=== PATIENT | female | born 1975 | race Caucasian/White ===

== ENCOUNTER 2017-09-24 12:24 | Emergency (ER) | payer OTHER ==
[2017-09-24 13:09] VITALS: BP 127/80; PULSE 89; TEMP 98; BMI 35.0
[2017-09-24] MEDS ORDERED: ALBUTEROL SO4 2.5/IPRATROPIUM 0.5 INH SOL 3 ML VIAL.NEB. NEB ONE (13:43)
--- NOTE | 2017-09-24 13:43 | PDOC ---
History of Present Illness - General Chief Complaint: Cold Symptoms Stated Complaint: COLD Time Seen by Provider: 09/24/17 13:31 History Source: Patient Exam Limitations: No Limitations - History of Present Illness Initial Comments: 09/24/17 13:34 Patient is a [42-year-old female with history of asthma, on Advair and Symbicort was diagnosed with influenza 3 days ago started on Tamiflu. 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 Patient wheezes as a baseline from her asthma, denies any change from her baseline. Patient just complains of intermittent fever, has been taking her Tamiflu on day 3. Denies any chest pain or shortness of breath has been doing her albuterol regularly at home. Is tolerating fluids, currently afebrile. Did have a flu shot. ] Allergies: No known allergies Medications: [Albuterol, Advair and Symbicort] Family History: Non-contributory Social History: Denies smoking, alcohol use, or IVDU Review of Systems GENERAL/CONSTITUTIONAL: Fever, generalized aches and pains No weakness. No weight change.] HEAD, EYES, EARS, NOSE AND THROAT: [No change in vision. No ear pain or discharge. No sore throat. ] CARDIOVASCULAR: [No chest pain or shortness of breath.] RESPIRATORY: [No cough, + wheezing, no hemoptysis.] GASTROINTESTINAL: [No nausea, vomiting, diarrhea or constipation. No rectal bleeding.] GENITOURINARY: [No dysuria, frequency, or change in urination.] MUSCULOSKELETAL: [No joint or muscle swelling or pain. No neck or back pain.] SKIN : [No rash or easy bruising.] NEUROLOGIC: [No headache, vertigo, loss of consciousness, or loss of sensation.] PSYCHIATRIC: [No depression or anxiety.] ENDOCRINE: [No increased thirst. No abnormal weight change.] HEMATOLOGIC/LYMPHATIC: [No anemia, easy bleeding, or history of blood clots.] ALLERGIC/IMMUNOLOGIC: [No hives or skin allergy. No latex allergy.] Physical Exam: GENERAL: [The patient is awake, alert, and fully oriented, in no acute distress. ] HEAD: [Normal with no signs of trauma.] EYES: [Pupils equal, round and reactive to light, extraocular movements intact, sclera anicteric, conjunctiva clear.] ENT: [Ears normal, nares patent, oropharynx clear without exudates. Moist mucous membranes. No uvula deviation] NECK: [Normal range of motion, supple without lymphadenopathy, JVD, or masses.] LUNGS: [Breath sounds equal, expiratory wheezes, no rhonchi no crackles] HEART: [Regular rate and rhythm, normal S1 and S2 without murmur, rub or gallop. ] ABDOMEN: [Soft, nontender, normoactive bowel sounds. No guarding, no rebound. No masses. No bruising or abrasions] MUSCULOSKELETAL: [Normal range of motion, no edema. No clubbing or cyanosis. No cords, erythema, or tenderness. No CVA Tenderness with fist.] NEUROLOGICAL: [Cranial nerves II through XII grossly intact. Normal speech, normal gait.] SKIN: [Warm, Dry, normal turgor, no rashes or lesions noted.] 09/24/17 13:45 Past History - Past Medical History Allergies/Adverse Reactions: Allergies Allergy/AdvReac Type Severity Reaction Status Date / Time No Known Allergies Allergy Verified 08/24/16 21:04 Home Medications: Ambulatory Orders Albuterol 0.083% Nebulizer Lena [Ventolin 0.083% Nebulizer Soln -] 1 neb NEB QID PRN #60 amp 06/30/16 Albuterol Sulfate Inhaler - [Ventolin HFA Inhaler -] 1 - 2 inh IH QID 06/30/16 Aclidinium [place] [Tudorza -] 1 inh IH BID 07/02/16 Budesonide/Formeterol Fumarate [SYMBICORT 160/4.5mcg -] 1 inh IH BID 07/02/16 Prednisone [Deltasone -] 60 mg PO DAILY 08/24/16 Aclidinium [place] [Tudorza -] 1 puff IH BID #1 inhaler 09/01/16 Budesonide/Formeterol Fumarate [SYMBICORT 160/4.5mcg -] 2 puff IH BID #1 inhaler 09/01/16 Fluticasone Prop 0.05% Nasal [Flonase -] 1 spray NS BID #1 spray 09/01/16 Loratadine [Claritin -] 10 mg PO DAILY tablet 09/01/16 Montelukast Na [Singulair -] 10 mg PO HS #20 tablet 09/01/16 Omeprazole 20 mg PO DAILY #14 capsule. 09/01/16 Prednisone [Deltasone -] 30 mg PO BID #30 tablet 09/01/16 Sodium Chloride Nasal [place] [[place] Nasal [place] -] 2 spray NS TID PRN #1 bottle 09/01/16 Anemia: No Asthma: Yes (INTUBATED 2009) COPD: No - Surgical History Orthopedic Surgery: Yes (scope/torn meniscus) - Family Disease History Family Disease History: Respiratory: Mother (asthma now) - Immunization History Td Vaccination: No TDAP Vaccination: No Immunization Up to Date: Yes - Suicide/Smoking/Psychosocial Hx Smoking Status: No Smoking History: Never smoked Have you smoked in the past 12 months: No Number of Cigarettes Smoked Daily: 0 Cigars Per Day: 0 Hx Alcohol Use: No Drug/Substance Use Hx: No Substance Use Type: None Hx Substance Use Treatment: No *Physical Exam - Vital Signs Last Vital Signs Temp Pulse Resp BP Pulse Ox 98 F 89 18 127/80 99 09/24/17 13:05 09/24/17 13:05 09/24/17 13:05 09/24/17 13:05 09/24/17 13:05 Medical Decision Making - Medical Decision Making 09/24/17 13:50 A/P: Patient here for evaluation of wheezing is influenza positive. Combivent treatment given while in emergency room with good result I will DC patient home to continue her Tamiflu and albuterol every 4 hours when necessary and her current medication, follow-up with employee health on Wednesday or Wednesday to be cleared to go to work. *DC/Admit/Observation/Transfer Diagnosis at time of Disposition: Influenza - Discharge Dispostion Disposition: HOME Condition at time of disposition: Stable Admit: No - Referrals Referrals: Alise Oliveira MD [Primary Care Provider] - - Patient Instructions Printed Discharge Instructions: Influenza (Alternative Therapy), Influenza Additional Instructions: Please continue to take her Tamiflu, albuterol as needed. Please follow-up with your primary care doctor, also follow-up with occupational medicine one week after diagnosis, on Wednesday for clearance to return to work - Post Discharge Activity
== END 2017-09-24 14:01 | disposition home or self-care (01) ==
LOC: JERFT 12:24
PROC: 3E0F7GC Introduction of Other Therapeutic Substance into Respiratory Tract, Via Natural or Artificial Opening (ICD-10-PCS; principal; 2017-09-24)
DX: J09.X2 Influenza due to identified novel influenza A virus with other respiratory manifestations (principal)
CPT/HCPCS: 99281-25

== ENCOUNTER 2017-11-21 19:17 | Emergency (ER) | payer OTHER ==
[2017-11-21 19:25] VITALS: BP 138/76; PULSE 83; TEMP 98.3; BMI 35.0
--- NOTE | 2017-11-21 22:06 | PDOC ---
History of Present Illness - General History Source: Patient Exam Limitations: No Limitations - History of Present Illness Initial Comments: 11/21/17 22:06 The patient is a 42 year old obese female, with a significant past medical history of asthma on Advair and symbicort , who presents to the emergency department with intermittent SOB, coughing, and wheezing. The patient reports having the flu in August and reports since never returning to her normal baseline. She reports having a recent prednisone taper and antibiotics prescription about 3 weeks ago, which offered little to no relief of her SOB/ wheezing. She notes her SOB is often worse when she lies down flat and with exertion. LMP was last week. She denies recent fevers, chills, headache or dizziness. She denies recent nausea, vomit, diarrhea or constipation. She denies recent dysuria, frequency, urgency or hematuria. Allergies: NKA Past surgical history: None reported. Social history: Nonsmoker. Denies EtOH use and recreational drug use. Primary Care Physician: <Erwin Rogers - Last Filed: 11/21/17 22:06> <Verónica Vera - Last Filed: 11/22/17 00:52> - General Chief Complaint: Asthma Stated Complaint: ASTHMA Time Seen by Provider: 11/21/17 21:56 Past History <Erwin Rogers - Last Filed: 11/21/17 22:06> - Past Medical History Anemia: No Asthma: Yes (INTUBATED 2009) COPD: No - Surgical History Orthopedic Surgery: Yes (scope/torn meniscus) - Family Disease History Family Disease History: Respiratory: Mother (asthma now) - Immunization History Td Vaccination: No TDAP Vaccination: No Immunization Up to Date: Yes - Suicide/Smoking/Psychosocial Hx Smoking Status: No Smoking History: Never smoked Have you smoked in the past 12 months: No Number of Cigarettes Smoked Daily: 0 Cigars Per Day: 0 Information on smoking cessation initiated: No Hx Alcohol Use: No Drug/Substance Use Hx: No Substance Use Type: None Hx Substance Use Treatment: No <Verónica Vera - Last Filed: 11/22/17 00:52> - Past Medical History Allergies/Adverse Reactions: Allergies Allergy/AdvReac Type Severity Reaction Status Date / Time No Known Allergies Allergy Verified 08/24/16 21:04 Home Medications: Ambulatory Orders Albuterol 0.083% Nebulizer Lena [Ventolin 0.083% Nebulizer Soln -] 1 neb NEB QID PRN #60 amp 06/30/16 Albuterol Sulfate Inhaler - [Ventolin HFA Inhaler -] 1 - 2 inh IH QID 06/30/16 Aclidinium [place] [Tudorza -] 1 inh IH BID 07/02/16 Budesonide/Formeterol Fumarate [SYMBICORT 160/4.5mcg -] 1 inh IH BID 07/02/16 predniSONE [Deltasone -] 60 mg PO DAILY 08/24/16 Aclidinium [place] [Tudorza -] 1 puff IH BID #1 inhaler 09/01/16 Budesonide/Formeterol Fumarate [SYMBICORT 160/4.5mcg -] 2 puff IH BID #1 inhaler 09/01/16 Fluticasone Prop 0.05% Nasal [Flonase -] 1 spray NS BID #1 spray 09/01/16 Loratadine [Claritin -] 10 mg PO DAILY tablet 09/01/16 Montelukast Na [Singulair -] 10 mg PO HS #20 tablet 09/01/16 Omeprazole 20 mg PO DAILY #14 capsule. 09/01/16 Sodium Chloride Nasal [place] [[place] Nasal [place] -] 2 spray NS TID PRN #1 bottle 09/01/16 predniSONE [Deltasone -] 30 mg PO BID #30 tablet 09/01/16 Albuterol Sulfate Inhaler - [Ventolin Hfa Inhaler -] 1 - 2 inh PO Q4H PRN #1 inhaler 11/22/17 Prednisone [Deltasone] 40 mg PO DAILY #8 tablet 11/22/17 Review of Systems - Review of Systems Able to Perform ROS?: Yes Comments:: 11/21/17 22:06 GENERAL/CONSTITUTIONAL: No fever or chills. No weakness. HEAD, EYES, EARS, NOSE AND THROAT: +post nasal trip. No change in vision. No ear pain or discharge. No sore throat. CARDIOVASCULAR: No chest pain +shortness of breath. RESPIRATORY: +cough, wheezing. No hemoptysis. GASTROINTESTINAL: No nausea, vomiting, diarrhea or constipation. GENITOURINARY: No dysuria, frequency, or change in urination. MUSCULOSKELETAL: No joint or muscle swelling or pain. No neck or back pain. SKIN: No rash NEUROLOGIC: No headache, vertigo, loss of consciousness, or change in strength/ sensation. ENDOCRINE: No increased thirst. No abnormal weight change. HEMATOLOGIC/LYMPHATIC: No anemia, easy bleeding, or history of blood clots. ALLERGIC/IMMUNOLOGIC: No hives or skin allergy. <Erwin Rogers - Last Filed: 11/21/17 22:06> *Physical Exam - Vital Signs Last Vital Signs Temp Pulse Resp BP Pulse Ox 98.3 F 83 20 138/76 97 11/21/17 19:23 11/21/17 19:23 11/21/17 19:23 11/21/17 19:23 11/21/17 19:23 - Physical Exam Comments: 11/21/17 22:07 GENERAL: Awake, alert, and fully oriented, in no acute distress HEAD: No signs of trauma EYES: PERRLA, EOMI, sclera anicteric, conjunctiva clear ENT: Auricles normal inspection, hearing grossly normal, nares patent, oropharynx clear without exudates. Moist mucosa NECK: Normal ROM, supple, no lymphadenopathy, JVD, or masses LUNGS: Course diffuse expiratory wheezing. No crackles HEART: Regular rate and rhythm, normal S1 and S2, no murmurs, rubs or gallops ABDOMEN: Soft, nontender, normoactive bowel sounds. No guarding, no rebound. No masses EXTREMITIES: Normal range of motion, no edema. No clubbing or cyanosis. No cords, erythema, or tenderness NEUROLOGICAL: Cranial nerves II through XII grossly intact. Normal speech, normal gait SKIN: Warm, Dry, normal turgor, no rashes or lesions noted. <Erwin Rogers - Last Filed: 11/21/17 22:06> - Vital Signs Last Vital Signs Temp Pulse Resp BP Pulse Ox 98.3 F 83 20 138/76 97 11/21/17 19:23 11/21/17 19:23 11/21/17 19:23 11/21/17 19:23 11/21/17 19:23 <Verónica Vera - Last Filed: 11/22/17 00:52> *DC/Admit/Observation/Transfer - Transfer to Acute Care Facility Transfer comment: 11/21/17 22:07 Documentation prepared by Eriwn O'Isma, acting as medical communication specialist for Verónica Vera MD/DO. <Erwin Rogers - Last Filed: 11/21/17 22:06> <Verónica Vera - Last Filed: 11/22/17 00:52> Diagnosis at time of Disposition: Asthma exacerbation Qualifiers: Asthma severity: moderate Asthma persistence: unspecified Qualified Code(s): J45.901 - Unspecified asthma with (acute) exacerbation - Discharge Dispostion Disposition: HOME Condition at time of disposition: Stable - Prescriptions Prescriptions: Albuterol Sulfate Inhaler - [Ventolin Hfa Inhaler -] 1 - 2 inh PO Q4H PRN #1 inhaler PRN Reason: Asthma Prednisone [Deltasone] 40 mg PO DAILY #8 tablet - Patient Instructions Printed Discharge Instructions: DI for Asthma -- Adult Additional Instructions: please take your asthma medications and follow up with your doctor this week return for any worsening symptoms
[2017-11-21] MEDS ORDERED: ALBUTEROL SO4 2.5/IPRATROPIUM 0.5 INH SOL 3 ML VIAL.NEB. NEB ONE ×3 (22:08→22:11)
[2017-11-21] MEDS ORDERED: ALBUTEROL SO4 0.083% IH SOL 2.5 MG/3 ML VIAL.NEB. NEB ONE ×2 (22:09→22:11)
[2017-11-21] MEDS ORDERED: DEXAMETHASONE SOD PHOSPHATE 10 MG/1 ML VIAL IM ONE (22:09)
[2017-11-21] MEDS ORDERED: DEXAMETHASONE SOD PHOSPHATE 10 MG/1 ML VIAL ONE (22:11)
[2017-11-22] MEDS ORDERED: ALBUTEROL SO4 2.5/IPRATROPIUM 0.5 INH SOL 3 ML VIAL.NEB. NEB ONE (00:17)
== END 2017-11-22 02:35 | disposition home or self-care (01) ==
LOC: JERFT 19:17
PROC: 3E0F7GC Introduction of Other Therapeutic Substance into Respiratory Tract, Via Natural or Artificial Opening (ICD-10-PCS; principal; 2017-11-21)
PROC: 3E0F7GC Introduction of Other Therapeutic Substance into Respiratory Tract, Via Natural or Artificial Opening (ICD-10-PCS; 2017-11-21)
PROC: 3E0F7GC Introduction of Other Therapeutic Substance into Respiratory Tract, Via Natural or Artificial Opening (ICD-10-PCS; 2017-11-21)
PROC: 3E0F7GC Introduction of Other Therapeutic Substance into Respiratory Tract, Via Natural or Artificial Opening (ICD-10-PCS; 2017-11-21)
PROC: 3E0F7GC Introduction of Other Therapeutic Substance into Respiratory Tract, Via Natural or Artificial Opening (ICD-10-PCS; 2017-11-21)
PROC: 3E0233Z Introduction of Anti-inflammatory into Muscle, Percutaneous Approach (ICD-10-PCS; 2017-11-21)
DX: J45.901 Unspecified asthma with (acute) exacerbation (principal)
CPT/HCPCS: 99281-25; J1100

== ENCOUNTER 2018-06-11 13:12 | Emergency (ER) | payer OTHER ==
[2018-06-11 13:18] VITALS: BP 130/68; TEMP 99; BMI 35.4
[2018-06-11] MEDS ORDERED: ALBUTEROL SO4 2.5/IPRATROPIUM 0.5 INH SOL 3 ML VIAL.NEB. NEB ONE ×2 (13:51→14:54)
--- NOTE | 2018-06-11 13:58 | PDOC ---
History of Present Illness - General Chief Complaint: Asthma Stated Complaint: SOB Time Seen by Provider: 06/11/18 13:40 History Source: Patient Exam Limitations: No Limitations - History of Present Illness Initial Comments: 06/11/18 16:26 Pt is a 42 y/o F with PMH of asthma who presents to the ED for asthma exacerbation. Pt states she was seen by her primary 3 days ago for the exacerbation and given prednisone, a shot of advair, and a z-pack. She has also been using nebulizers at home with little relief. Pt also reports taking 40mg of prednisone prior to arrival. She states that despite all of her treatment she is still wheezing and feels tight. Admits to cough. Denies fevers, chills, nausea, vomiting, chest pain, recent illness Pt was intubated in 2009 for her asthma. She has been admitted numerous times for her asthma in the past Pulm: Dr. Resendez Past History - Travel Traveled outside of the country in the last 30 days: No Close contact w/someone who was outside of country & ill: No - Past Medical History Allergies/Adverse Reactions: Allergies Allergy/AdvReac Type Severity Reaction Status Date / Time No Known Allergies Allergy Verified 06/11/18 13:19 Home Medications: Ambulatory Orders Albuterol 0.083% Nebulizer Lena [Ventolin 0.083% Nebulizer Soln -] 1 neb NEB QID PRN #60 amp 06/30/16 Albuterol Sulfate Inhaler - [Ventolin HFA Inhaler -] 1 - 2 inh IH QID 06/30/16 Fluticasone Prop 0.05% Nasal [Flonase -] 1 spray NS BID #1 spray 09/01/16 Montelukast Na [Singulair -] 10 mg PO HS #20 tablet 09/01/16 Sodium Chloride Nasal [place] [[place] Nasal [place] -] 2 spray NS TID PRN #1 bottle 09/01/16 predniSONE [Deltasone -] 30 mg PO BID #30 tablet 09/01/16 Prednisone [Deltasone] 40 mg PO DAILY #8 tablet 11/22/17 Albuterol 2.5/Ipratropium 0.5 [Duoneb -] 1 neb NEB Q4H #20 vial 03/27/18 Olopatadine HCl [Patanol] 5 ml OP DAILY #1 bottle 03/30/18 Budesonide/Formeterol Fumarate [SYMBICORT 160/4.5mcg -] 1 inh PO BID 06/11/18 Fluticasone/Salmeterol [Advair 250-50 Diskus] 1 each IH BID 06/11/18 Anemia: No Asthma: Yes (INTUBATED 2009) COPD: No - Surgical History Orthopedic Surgery: Yes (scope/torn meniscus) - Family Disease History Family Disease History: Respiratory: Mother (asthma now) - Immunization History Td Vaccination: No TDAP Vaccination: No Immunization Up to Date: Yes - Suicide/Smoking/Psychosocial Hx Smoking Status: No Smoking History: Never smoked Have you smoked in the past 12 months: No Number of Cigarettes Smoked Daily: 0 Cigars Per Day: 0 Hx Alcohol Use: No Drug/Substance Use Hx: No Substance Use Type: None Hx Substance Use Treatment: No Review of Systems - Review of Systems Able to Perform ROS?: Yes Comments:: 06/11/18 13:54 CONSTITUTIONAL: Absent: fever, chills, diaphoresis, generalized weakness, malaise, loss of appetite HEENT: Absent: rhinorrhea, nasal congestion, throat pain, throat swelling, difficulty swallowing, mouth swelling, ear pain, eye pain, visual Changes CARDIOVASCULAR: Absent: chest pain, loss of consciousness, palpitations, irregular heart rate, peripheral edema RESPIRATORY: Present: cough, wheezing, shortness of breath Absent: dyspnea with exertion, orthopnea, stridor, hemoptysis GASTROINTESTINAL: Absent: abdominal pain, abdominal distension, nausea, vomiting, diarrhea, constipation, melena, hematochezia GENITOURINARY: Absent: dysuria, frequency, urgency, hesitancy, hematuria, flank pain, genital pain MUSCULOSKELETAL: Absent: myalgia, arthralgia, joint swelling SKIN: Absent: rash, itching, pallor HEMATOLOGIC/IMMUNOLOGIC: Absent: easy bleeding, easy bruising, lymphadenopathy, frequent infections ENDOCRINE: Absent: unexplained weight gain, unexplained weight loss, heat intolerance, cold intolerance NEUROLOGIC: Absent: headache, focal weakness or paresthesias, dizziness, unsteady gait, seizure, mental status changes, bladder or bowel incontinence PSYCHIATRIC: Absent: anxiety, depression, suicidal or homicidal ideation, hallucinations. Is the patient limited Welsh proficient: No *Physical Exam - Vital Signs Last Vital Signs Temp Pulse Resp BP Pulse Ox 99 F 82 18 130/68 95 06/11/18 13:15 06/11/18 13:15 06/11/18 13:15 06/11/18 13:15 06/11/18 13:15 - Physical Exam Comments: 06/11/18 13:54 GENERAL: Well developed, well nourished. Awake and alert. No acute distress. HEENT: Normocephalic, atraumatic. PERRLA, EOMI. No conjunctival pallor. Sclera are non- icteric. Moist mucous membranes. Oropharynx is clear. NECK: Supple. Full ROM. No JVD. Carotid pulses 2+ and symmetric, without bruits. No thyromegaly. No lymphadenopathy. CARDIOVASCULAR: Regular rate and rhythm. No murmurs, rubs, or gallops. Distal pulses are 2+ and symmetric. PULMONARY: Pt with inspiratory and expiratory wheezing through all lung [place]. Pt with retractions. No evidence of respiratory distress. No rales or rhonchi. ABDOMINAL: Soft. Non-tender. Non-distended. No rebound or guarding. No organomegaly. Normoactive bowel sounds. MUSCULOSKELETAL Normal range of motion at all joints. No bony deformities or tenderness. No CVA tenderness. EXTREMITIES: No cyanosis. No clubbing. No edema. No calf tenderness. SKIN: Warm and dry. Normal capillary refill. No rashes. No jaundice. NEUROLOGICAL: Alert, awake, appropriate. Cranial nerves 2-12 intact. No deficits to light touch and temperature in face, upper extremities and lower extremities. No motor deficits in the in face, upper extremities and lower extremities. Normoreflexic in the upper and lower extremities. Normal speech. Toes are down- going bilaterally. Gait is normal without ataxia. PSYCHIATRIC: Cooperative. Good eye contact. Appropriate mood and affect. Medical Decision Making - Medical Decision Making 06/11/18 15:36 Pt is a 42 y/o F with PMH of asthma who presents to the ED for asthma exacerbation. -Pt on multiple medical treatments currently for her asthma including nebs, steroids, abx, plus long acting beta-agonists with significant wheezing -4 duonebs given in the ED. Pt reports feeling better, however still with significant wheezing on exam despite treatment -Chest x-ray is negative for PNA -Given Pt's history of intubation and multiple admissions for asthma with current unresolving symptoms, will transfer patient to the main ED. Sign out given to DAV Guerra, and charge nurse Marichuy Cho. Pt to be placed in bed 12A. *DC/Admit/Observation/Transfer Diagnosis at time of Disposition: Asthma Qualifiers: Asthma severity: moderate Asthma persistence: persistent Asthma complication type: with acute exacerbation Qualified Code(s): J45.41 - Moderate persistent asthma with (acute) exacerbation - Referrals Referrals: Alise Oliveira MD [Primary Care Provider] - - Patient Instructions - Post Discharge Activity
[2018-06-11] MEDS: ALBUTEROL SO4 2.5/IPRATROPIUM 0.5 INH SOL 3 ML VIAL.NEB. NEB SCH ×3 (14:01→14:56)
--- NOTE | 2018-06-11 15:27 | PDOC ---
*Physical Exam - Vital Signs Last Vital Signs Temp Pulse Resp BP Pulse Ox 99 F 82 18 130/68 95 06/11/18 13:15 06/11/18 13:15 06/11/18 13:15 06/11/18 13:15 06/11/18 13:15 ED Treatment Course - ADDITIONAL ORDERS Additional order review: Laboratory Results 06/11/18 14:11 Urine HCG, Qual Negative - Medications Given in the ED: ED Medications Discontinued Medications Generic Name Dose Route Start Last Admin Trade Name Freq PRN Reason Stop Dose Admin Albuterol/Ipratropium 1 amp 06/11/18 14:00 06/11/18 14:56 Duoneb - NEB 06/11/18 14:46 1 amp Q15M MULU Administration Medical Decision Making - Medical Decision Making 06/11/18 15:26 Case discussed with DAV Dickens. plan as per DAV. *DC/Admit/Observation/Transfer - Referrals Referrals: Alise Oliveira MD [Primary Care Provider] - - Patient Instructions - Post Discharge Activity
[2018-06-11] MEDS ORDERED: MAGNESIUM SULF 50% (8.12 MEQ/2 ML-1 GM VIAL) IVPB ONE (15:41)
[2018-06-11] MEDS ORDERED: methylPREDNISolone NA SUCC 125 MG/2 ML VIAL IVPB ONE (15:41)
[2018-06-11] MEDS ORDERED: methylPREDNISolone NA SUCC 125 MG/2 ML VIAL ONE (16:14)
[2018-06-11] MEDS ORDERED: MAGNESIUM 1GM/D5W - 1 GM/100 ML IVPB IVPB ONE (16:14)
--- NOTE | 2018-06-11 16:35 | PDOC ---
History of Present Illness - General Chief Complaint: Asthma Stated Complaint: SOB Time Seen by Provider: 06/11/18 13:40 History Source: Patient Exam Limitations: No Limitations - History of Present Illness Initial Comments: CHIEF COMPLAINT: 42 y/o afebrile female with PMH asthma with prior intubations c/o asthma symptoms x 1 week. HISTORY OF PRESENT ILLNESS: The patient has been on prednisone for 1 week. She states she saw her PMD 2 days ago who started her on a Z-pack. She admits her wheezing and coughing were not improving. She denies fever. She had 4 duonebs in fastrack and states she feels much better but continues to have an O2 sat of 95% on RA and wheezing. PMD is Dr. Oliveira Vital signs on arrival are notable for O2 sat of 95% on RA. REVIEW OF SYSTEMS: GENERAL/CONSTITUTIONAL: No fever/chills. No weakness. No weight change. HEAD, EYES, EARS, NOSE AND THROAT: No change in vision. No ear pain or discharge. No sore throat. CARDIOVASCULAR: +SOB. No chest pain. RESPIRATORY: + cough and wheezing. GASTROINTESTINAL: No abd pain, nausea, vomiting, diarrhea. GENITOURINARY: No dysuria, frequency, or change in urination. MUSCULOSKELETAL: No joint or muscle swelling or pain. No neck or back pain. SKIN: No rash or easy bruising. NEUROLOGIC: No headache, vertigo, loss of consciousness, or loss of sensation. PHYSICAL EXAM: GENERAL: The patient is awake, alert, and fully oriented, in no acute distress. She is well appearing and speaks in full sentences without wheezing. HEAD: Normal with no signs of trauma. ENT: Pupils equal, round and reactive to light, extraocular movements intact, sclera anicteric, conjunctiva clear. Neck supple. LUNGS: Faint expiratory wheezing in lower [place]. Normal excursion. No respiratory distress or use of accessory muscles. CV: RRR, S1/S2, no MRG. Cap refill < 2 sec. ABDOMEN: Soft, non-distended, non-tender even to deep palpation, no hepatomegaly or splenomegaly, no masses. EXTREMITIES: Normal range of motion, no edema. NEUROLOGICAL: Normal speech, normal gait. CN II-XII grossly intact. SKIN: Warm, dry, normal turgor, no rashes or lesions noted. Past History - Past Medical History Allergies/Adverse Reactions: Allergies Allergy/AdvReac Type Severity Reaction Status Date / Time No Known Allergies Allergy Verified 06/11/18 13:19 Home Medications: Ambulatory Orders Albuterol 0.083% Nebulizer Lena [Ventolin 0.083% Nebulizer Soln -] 1 neb NEB QID PRN #60 amp 06/30/16 Albuterol Sulfate Inhaler - [Ventolin HFA Inhaler -] 1 - 2 inh IH QID 06/30/16 Fluticasone Prop 0.05% Nasal [Flonase -] 1 spray NS BID #1 spray 09/01/16 Montelukast Na [Singulair -] 10 mg PO HS #20 tablet 09/01/16 Sodium Chloride Nasal [place] [[place] Nasal [place] -] 2 spray NS TID PRN #1 bottle 09/01/16 predniSONE [Deltasone -] 30 mg PO BID #30 tablet 09/01/16 Prednisone [Deltasone] 40 mg PO DAILY #8 tablet 11/22/17 Albuterol 2.5/Ipratropium 0.5 [Duoneb -] 1 [facility] NEB Q4H #20 vial 03/27/18 Olopatadine HCl [Patanol] 5 ml OP DAILY #1 bottle 03/30/18 Budesonide/Formeterol Fumarate [SYMBICORT 160/4.5mcg -] 1 inh PO BID 06/11/18 Fluticasone/Salmeterol [Advair 250-50 Diskus] 1 each IH BID 06/11/18 Anemia: No Asthma: Yes (INTUBATED 2009) COPD: No - Surgical History Orthopedic Surgery: Yes (scope/torn meniscus) - Family Disease History Family Disease History: Respiratory: Mother (asthma now) - Immunization History Td Vaccination: No TDAP Vaccination: No Immunization Up to Date: Yes - Suicide/Smoking/Psychosocial Hx Smoking Status: No Smoking History: Never smoked Have you smoked in the past 12 months: No Number of Cigarettes Smoked Daily: 0 Cigars Per Day: 0 Hx Alcohol Use: No Drug/Substance Use Hx: No Substance Use Type: None Hx Substance Use Treatment: No Review of Systems - Review of Systems Is the patient limited Bulgarian proficient: No *Physical Exam - Vital Signs Last Vital Signs Temp Pulse Resp BP Pulse Ox 99 F 82 18 130/68 97 06/11/18 13:15 06/11/18 13:15 06/11/18 13:15 06/11/18 13:15 06/11/18 15:30 ED Treatment Course - ADDITIONAL ORDERS Additional order review: Laboratory Results 06/11/18 14:11 Urine HCG, Qual Negative - Medications Given in the ED: ED Medications Discontinued Medications Generic Name Dose Route Start Last Admin Trade Name Shay PRN Reason Stop Dose Admin Albuterol/Ipratropium 1 amp 06/11/18 14:00 06/11/18 14:56 Duoneb - NEB 06/11/18 14:46 1 amp Q15M MULU Administration Medical Decision Making - Medical Decision Making A/P: 42 y/o female with asthma symptoms not improving with PO prednisone and 2 days of zpack. She received 4 duonebs in fastrack and states feels much better but continues to have 95% O2 sat on RA and minimal wheezing. Plan is as follows : 1. IV solumedrol 2. IV mag The patient states she feels much better and well enough to go home. Repeat lung exam - Very minimal expiratory wheezing at bases. No accessory muscle use. O2 sat is now 97% on RA. The patient wants to go home. Instructed her to continue taking her prednisone, z-pack and normal asthma medications as directed, follow up with her doctor on Wednesday, and return to the ER with any worsening or concerning symptoms. The patient verbalizes understanding of all instructions, has no further questions and is awaiting discharge. *DC/Admit/Observation/Transfer Diagnosis at time of Disposition: Asthma Qualifiers: Asthma severity: moderate Asthma persistence: persistent Asthma complication type: with acute exacerbation Qualified Code(s): J45.41 - Moderate persistent asthma with (acute) exacerbation - Discharge Dispostion Disposition: HOME Condition at time of disposition: Improved - Referrals Referrals: Alise Oliveira MD [Primary Care Provider] - (Call Wednesday) - Patient Instructions Printed Discharge Instructions: DI for Asthma -- Adult Additional Instructions: Discharge Instructions: -Continue taking prednisone and Z-pack as prescribed -Continue taking all of your daily asthma medications -Call Dr. Oliveira on Wednesday to schedule follow up appointment -Return to the ER immediately with any worsening or concerning symptoms - Post Discharge Activity
[2018-06-11 17:44] VITALS: PULSE 84
== END 2018-06-11 17:47 | disposition home or self-care (01) ==
LOC: JERFT 13:12 → JER 13:12
PROC: 3E0F7GC Introduction of Other Therapeutic Substance into Respiratory Tract, Via Natural or Artificial Opening (ICD-10-PCS; principal; 2018-06-11)
PROC: 3E0F7GC Introduction of Other Therapeutic Substance into Respiratory Tract, Via Natural or Artificial Opening (ICD-10-PCS; 2018-06-11)
PROC: 3E0F7GC Introduction of Other Therapeutic Substance into Respiratory Tract, Via Natural or Artificial Opening (ICD-10-PCS; 2018-06-11)
PROC: 3E0F7GC Introduction of Other Therapeutic Substance into Respiratory Tract, Via Natural or Artificial Opening (ICD-10-PCS; 2018-06-11)
PROC: 3E033GC Introduction of Other Therapeutic Substance into Peripheral Vein, Percutaneous Approach (ICD-10-PCS; 2018-06-11)
PROC: 3E0333Z Introduction of Anti-inflammatory into Peripheral Vein, Percutaneous Approach (ICD-10-PCS; 2018-06-11)
DX: J45.41 Moderate persistent asthma with (acute) exacerbation (principal)
CPT/HCPCS: 71045-TC-FY; 84703; 99282-25; J7620

== ENCOUNTER 2018-08-13 09:44 | Emergency (ER) | payer OTHER ==
[2018-08-13 09:47] VITALS: BP 168/83; PULSE 78; TEMP 98.5; BMI 35.2
[2018-08-13] MEDS ORDERED: IBUPROFEN 400 MG TABLET (FP) PO ONE ×2 (10:51→10:53)
--- NOTE | 2018-08-13 10:51 | PDOC ---
History of Present Illness - General Chief Complaint: Toothache Stated Complaint: TOOTH PAIN Time Seen by Provider: 08/13/18 10:34 History Source: Patient Exam Limitations: No Limitations - History of Present Illness Initial Comments: CHIEF COMPLAINT: 42 y/o afebrile female c/o toothache since last night. HISTORY OF PRESENT ILLNESS: Patient has pain in her bottom right back tooth. She states she's taken tylenol and advil without relief. She is supposed to see her dentist on wednesday. SHe denies fever Vital signs on arrival are within normal limits. REVIEW OF SYSTEMS: GENERAL/CONSTITUTIONAL:No fever/chills. No weakness. No weight change. HEAD, EYES, EARS, NOSE AND THROAT: +toothache. No change in vision. No ear pain or discharge. No sore throat. PHYSICAL EXAM: GENERAL: The patient is awake, alert, and fully oriented, in no acute distress. HEAD: Normal with no signs of trauma. ENT: TTP of right bottom molar with visible crack in tooth. No surrounding gingival erythema or edema. No facial swelling Past History - Past Medical History Allergies/Adverse Reactions: Allergies Allergy/AdvReac Type Severity Reaction Status Date / Time No Known Allergies Allergy Verified 08/13/18 09:48 Home Medications: Ambulatory Orders Albuterol 0.083% Nebulizer Lena [Ventolin 0.083% Nebulizer Soln -] 1 neb NEB QID PRN #60 amp 06/30/16 Albuterol Sulfate Inhaler - [Ventolin HFA Inhaler -] 1 - 2 inh IH QID 06/30/16 Fluticasone Prop 0.05% Nasal [Flonase -] 1 spray NS BID #1 spray 09/01/16 Montelukast Na [Singulair -] 10 mg PO HS #20 tablet 09/01/16 Sodium Chloride Nasal [place] [[place] Nasal [place] -] 2 spray NS TID PRN #1 bottle 09/01/16 predniSONE [Deltasone -] 30 mg PO BID #30 tablet 09/01/16 Prednisone [Deltasone] 40 mg PO DAILY #8 tablet 11/22/17 Albuterol 2.5/Ipratropium 0.5 [Duoneb -] 1 neb [facility] Q4H #20 vial 03/27/18 Olopatadine HCl [Patanol] 5 ml OP DAILY #1 bottle 03/30/18 Budesonide/Formeterol Fumarate [SYMBICORT 160/4.5mcg -] 1 inh PO BID 06/11/18 Fluticasone/Salmeterol [Advair 250-50 Diskus] 1 each IH BID 06/11/18 Amoxicillin - [Amoxicillin 500mg Capsule -] 500 mg PO TID #21 capsule 08/13/18 Ibuprofen 800 mg PO TID #15 tablet 08/13/18 Anemia: No Asthma: Yes (INTUBATED 2009) COPD: No - Surgical History Orthopedic Surgery: Yes (scope/torn meniscus) - Family Disease History Family Disease History: Respiratory: Mother (asthma now) - Immunization History Td Vaccination: No TDAP Vaccination: No Immunization Up to Date: Yes - Suicide/Smoking/Psychosocial Hx Smoking Status: No Smoking History: Never smoked Have you smoked in the past 12 months: No Number of Cigarettes Smoked Daily: 0 Cigars Per Day: 0 Hx Alcohol Use: No Drug/Substance Use Hx: No Substance Use Type: None Hx Substance Use Treatment: No *Physical Exam - Vital Signs Last Vital Signs Temp Pulse Resp BP Pulse Ox 98.5 F 78 18 168/83 99 08/13/18 09:45 08/13/18 09:45 08/13/18 09:45 08/13/18 09:45 08/13/18 09:45 Medical Decision Making - Medical Decision Making A/P: 42 y/o female with toothache. will give 800mg of ibuprofen in the ER. Provided her with urgent care dental clinic info. Sent rx for amox and ibuprofen to her pharmacy. The patient verbalizes understanding of all instructions, has no further questions and is awaiting discharge. *DC/Admit/Observation/Transfer Diagnosis at time of Disposition: Toothache - Discharge Dispostion Disposition: HOME Condition at time of disposition: Good - Referrals Referrals: Alise Oliveira MD [Primary Care Provider] - Call tomorrow - Patient Instructions Printed Discharge Instructions: DI for Dental Pain Additional Instructions: Discharge Instructions: -You need to see a dentist -There is an urgent care dental clinic open today in [place]. The phone number is [phone] -A prescription for an antibiotic and pain medication has been sent to your pharmacy - Post Discharge Activity
== END 2018-08-13 10:59 | disposition home or self-care (01) ==
LOC: JERFT 09:44
DX: K08.89 Other specified disorders of teeth and supporting structures (principal)
CPT/HCPCS: 99281-25

== ENCOUNTER 2018-10-11 11:13 | Inpatient (IN) | payer OTHER ==
[2018-10-11 11:34] VITALS: BMI 35.0
[2018-10-11] MEDS ORDERED: ALBUTEROL SO4 2.5/IPRATROPIUM 0.5 INH SOL 3 ML VIAL.NEB. NEB ONE ×3 (12:14→17:19)
[2018-10-11] MEDS ORDERED: methylPREDNISolone NA SUCC 125 MG/2 ML VIAL IVPB ONE (12:16)
--- NOTE | 2018-10-11 12:16 | PDOC ---
History of Present Illness - General Chief Complaint: Asthma Stated Complaint: SOB Time Seen by Provider: 10/11/18 12:14 History Source: Patient Exam Limitations: No Limitations - History of Present Illness Initial Comments: 10/11/18 12:15 CHIEF COMPLAINT: Dyspnea HISTORY OF PRESENT ILLNESS: This is a 43-year-old female with a history of asthma (intubated in 2009 with several hospitalizations since then; maintained on daily Tudorza, Singulair, Symbicort, and albuterol nebs prn) who was started on prednisone taper for asthma exacerbation x 1 wk ago. She is now down to 40mg daily. Symptoms are not worsening, but also have not improved after 1 week of therapy. She is only able to walk a short distance because of MARQUEZ. She has cough productive of minimal sputum and chest pain/tightness with coughing or walking. She denies fevers/chills, chest pain at rest, or any other symptoms. Smoking: None for 20 yrs PCP: Dr. Oliveira Net Web Developer: Dr. Resendez V/s on arrival are notable for RR 24. REVIEW OF SYSTEMS: GENERAL/CONSTITUTIONAL: No fever or chills. No weakness. No weight change. HEAD, EYES, EARS, NOSE AND THROAT: No change in vision. No ear pain or discharge. No sore throat. CARDIOVASCULAR: Chest tightness with walking/coughing, none at rest. RESPIRATORY: See HPI. GASTROINTESTINAL: No nausea, vomiting, diarrhea or constipation. GENITOURINARY: No dysuria, frequency, or change in urination. MUSCULOSKELETAL: No joint or muscle swelling or pain. No neck or back pain. SKIN: No rash or easy bruising. NEUROLOGIC: No headache, vertigo, loss of consciousness, or loss of sensation. PSYCHIATRIC: No depression or anxiety. ENDOCRINE: No increased thirst. No abnormal weight change. HEMATOLOGIC/LYMPHATIC: No anemia, easy bleeding, or history of blood clots. ALLERGIC/IMMUNOLOGIC: No hives or skin allergy. No latex allergy. PHYSICAL EXAM: GENERAL: The patient is awake, alert, and fully oriented, in no acute distress. HEAD: Normal with no signs of trauma. ENT: Pupils equal, round and reactive to light, extraocular movements intact, sclera anicteric, conjunctiva clear. Neck supple. LUNGS: Diffuse expiratory wheezing with poor air entry bilaterally. Mild tachypnea. Able to speak in full sentences. CV: RRR, S1/S2, no MRG. Cap refill < 2 sec. ABDOMEN: Soft, non-distended, non-tender. EXTREMITIES: Normal range of motion, no edema. NEUROLOGICAL: Normal speech, normal gait. CN II-XII grossly intact. PSYCH: Normal mood, normal affect. SKIN: Warm, dry, normal turgor, no rashes or lesions noted. Past History - Past Medical History Allergies/Adverse Reactions: Allergies Allergy/AdvReac Type Severity Reaction Status Date / Time No Known Allergies Allergy Verified 10/11/18 11:29 Home Medications: Ambulatory Orders Albuterol 0.083% Nebulizer Lena [Ventolin 0.083% Nebulizer Soln -] 1 neb NEB QID PRN #60 amp 06/30/16 Albuterol Sulfate Inhaler - [Ventolin HFA Inhaler -] 1 - 2 inh IH QID 06/30/16 Fluticasone Prop 0.05% Nasal [Flonase -] 1 spray NS BID #1 spray 09/01/16 Montelukast Na [Singulair -] 10 mg PO HS #20 tablet 09/01/16 Sodium Chloride Nasal [place] [[place] -] 2 spray NS TID PRN #1 bottle 09/01/16 predniSONE [Deltasone -] 30 mg PO BID #30 tablet 09/01/16 Prednisone [Deltasone] 40 mg PO DAILY #8 tablet 11/22/17 Albuterol 2.5/Ipratropium 0.5 [Duoneb -] 1 [facility] NEB Q4H #20 vial 03/27/18 Olopatadine HCl [Patanol] 5 ml OP DAILY #1 bottle 03/30/18 Budesonide/Formeterol Fumarate [SYMBICORT 160/4.5mcg -] 1 inh PO BID 06/11/18 Fluticasone/Salmeterol [Advair 250-50 Diskus] 1 each IH BID 06/11/18 Amoxicillin - [Amoxicillin 500mg Capsule -] 500 mg PO TID #21 capsule 08/13/18 Ibuprofen 800 mg PO TID #15 tablet 08/13/18 Anemia: No Asthma: Yes (INTUBATED 2009) COPD: No - Surgical History Orthopedic Surgery: Yes (scope/torn meniscus) - Family Disease History Family Disease History: Respiratory: Mother (asthma now) - Immunization History Td Vaccination: No TDAP Vaccination: No Immunization Up to Date: Yes - Suicide/Smoking/Psychosocial Hx Smoking Status: No Smoking History: Never smoked Have you smoked in the past 12 months: No Number of Cigarettes Smoked Daily: 0 Cigars Per Day: 0 Hx Alcohol Use: No Drug/Substance Use Hx: No Substance Use Type: None Hx Substance Use Treatment: No *Physical Exam - Vital Signs Last Vital Signs Temp Pulse Resp BP Pulse Ox 98.3 F 85 24 H 151/74 95 10/11/18 11:29 10/11/18 11:29 10/11/18 11:29 10/11/18 11:29 10/11/18 11:29 Moderate Sedation - Procedure Monitoring Vital Signs: Procedure Monitoring Vital Signs Temperature 98.3 F 10/11/18 11:29 Pulse Rate 85 10/11/18 11:29 Respiratory Rate 24 H 10/11/18 11:29 Blood Pressure 151/74 10/11/18 11:29 O2 Sat by Pulse Oximetry (%) 95 10/11/18 11:29 ED Treatment Course - LABORATORY CBC & Chemistry Diagram: 10/11/18 12:45 10/11/18 12:45 Medical Decision Making - Medical Decision Making 10/11/18 12:24 A/P: 43-year-old female with asthma exacerbation. 1. DuoNeb followed by albuterol nebs 2. Solu-Medrol 125mg IVP x 1 3. CXR 4. Anticipate admission 10/11/18 13:48 Patient remains dyspneic and wheezing. Discussed with Dr. Claros - will consult. Admission requested to Dr. Oliveira. *DC/Admit/Observation/Transfer Diagnosis at time of Disposition: Asthma exacerbation Qualifiers: Asthma severity: moderate Asthma persistence: persistent Qualified Code(s): J45.41 - Moderate persistent asthma with (acute) exacerbation - Discharge Dispostion Condition at time of disposition: Guarded Decision to Admit order: Yes - Referrals - Patient Instructions - Post Discharge Activity
[2018-10-11] MEDS ORDERED: methylPREDNISolone NA SUCC 125 MG/2 ML VIAL ONE (12:33)
[2018-10-11 12:51] LABS: BASO % 0.8 % (0-2.0); EOS % 0.5 % (0-4.5); HEMOGLOBIN 12.8 GM/dL (10.7-15.3); LYMPH % 3.1 % (8-40); MCHC 32.7 g/dl (32.0-36.0); MEAN CELL VOLUME 82.6 fl (80-96); MEAN PLT VOLUME 7.6 fl (7.5-11.1); MONO % 2.3 % (3.8-10.2); NEUT % 93.3 % (42.8-82.8); PLATELET COUNT 408 K/MM3 (134-434); RBC 4.72 M/mm3 (3.60-5.2); RDW 15.3 % (11.6-15.6); WHITE BLOOD COUNT 15.7 K/mm3 (4.0-10.0)
[2018-10-11 13:32] LABS: ALBUMIN 3.8 g/dl (3.4-5.0); ALK PHOS 78 U/L (45-117); ANION GAP 7 MMOL/L (8-16); BILIRUBIN,TOTAL 0.2 mg/dL (0.2-1); BLOOD UREA NITROGEN 15 mg/dL (7-18); CHLORIDE 106 mmol/L (98-107); CO2 26 mmol/L (21-32); CREATININE 0.8 mg/dL (0.55-1.3); GLUCOSE,RANDOM 119 mg/dL (74-106); POTASSIUM 4.1 mmol/L (3.5-5.1); SGOT/AST 10 U/L (15-37); SGPT/ALT 15 U/L (13-61); SODIUM 139 mmol/L (136-145); TOT PROT 7.5 g/dl (6.4-8.2)
[2018-10-11] MEDS: ALBUTEROL SO4 0.083% IH SOL 2.5 MG/3 ML VIAL.NEB. NEB SCH ×4 (14:00→14:45)
[2018-10-11] MEDS ORDERED: ALBUTEROL SO4 0.083% IH SOL 2.5 MG/3 ML VIAL.NEB. NEB ONE (14:15)
[2018-10-11 14:36] LABS: ANISOCYTOSIS 0; MACROCYTOSIS 0; PLATELET ESTIMATE NORMAL
--- NOTE | 2018-10-11 15:17 | PN ---
Progress Note (short form) - Note Progress Note: PULMONARY CONSULTATION DICTATED 10/11/18 IMP CHRONIC PERSISTENT ASTHMA WITH ACUTE EXACERBATION HTN PLAN IV STEROIDS INHALED BRONCHODILATORS O2 MONITOR PEAK FLOW IGE LEVEL OUTPATIENT DR GIORDANO Problem List - Problems (1) Asthma exacerbation Code(s): J45.901 - UNSPECIFIED ASTHMA WITH (ACUTE) EXACERBATION Qualifiers: Asthma severity: moderate Asthma persistence: persistent Qualified Code(s ): J45.41 - Moderate persistent asthma with (acute) exacerbation (2) HTN (hypertension) Code(s): I10 - ESSENTIAL (PRIMARY) HYPERTENSION (3) Moderate persistent chronic asthma with acute exacerbation Code(s): J45.41 - MODERATE PERSISTENT ASTHMA WITH (ACUTE) EXACERBATION
[2018-10-11] MEDS ORDERED: ALBUTEROL SO4 0.083% IH SOL 2.5 MG/3 ML VIAL.NEB. NEB PRN (15:20)
--- NOTE | 2018-10-11 15:42 | CONS ---
DATE OF CONSULTATION: 10/11/2018 REFERRING PHYSICIAN: Alise Oliveira M.D. HISTORY OF PRESENT ILLNESS: The patient is a 43-year-old white female with a past medical history of chronic persistent asthma, history of intubation in 2009, had multiple hospitalizations since, admitted to [facility] with the complaint of 1 week history of increasing shortness of breath, cough and chest congestion. Patient was started on prednisone approximately 1 week ago. She states that since that time she saw minimal improvement, but she develops dyspnea with minimal exertion. She denies any chest pain or palpitations. She states that she is unable to get and/or catch her breath. She denies any hemoptysis. She denies any fevers or chills. She denies any recent URI symptoms. She is a nonsmoker. There was no history of occupational exposure to chemicals or fumes. She denies any recent travel. PAST MEDICAL HISTORY: Again includes chronic persistent asthma. REVIEW OF SYSTEMS: Respiratory: Positive shortness of breath, positive cough, positive wheezing. Chest: No chest pain, no palpitations, no hemoptysis. Abdomen: No abdominal pain, Extremities: No lower extremity edema. MEDICATIONS: Her medications prior to admission include Tudorza, Singulair, Symbicort and albuterol. PHYSICAL EXAMINATION: General: On physical examination, the patient is a well-developed, well-nourished female awake, alert, in no acute distress. Vitals: She is afebrile. Blood pressure is 151/74, respiratory rate is 24, O2 saturation is 95% on room air. HEENT: Exam is normocephalic, atraumatic. Neck: Supple. Heart: Regular with S1, S2. Chest: Scattered bibasilar wheezes throughout. Abdomen: Soft. Bowel sounds are positive. Extremities: No cyanosis, edema. LABORATORY STUDIES: WBC is 15.7, hemoglobin 12.8, hematocrit 39, platelet count of 408,000. BUN 15, creatinine 0.8. Chest x-ray: No infiltrates, no effusions. IMPRESSION: Chronic persistent asthma with acute exacerbation. PLAN: IV steroids, inhaled bronchodilators, supplemental O2, monitor peak flow. SHIELA GIORDANO M.D. [id number]
[2018-10-11] MEDS ORDERED: ALBUTEROL SO4 2.5/IPRATROPIUM 0.5 INH SOL 3 ML VIAL.NEB. NEB SCH (16:00)
--- NOTE | 2018-10-11 18:51 | HP ---
Admitting History and Physical - Primary Care Physician PCP: Alise Oliveira - Admission Chief Complaint: Cough, SOB, wheezing History of Present Illness: Patient is a 43 y/o female with past medical history of Asthma (history of intubation 2009) that presented to ED with complaints of cough, SOB, wheezing, and chest tightness. She was previously seen by PMD and treated for asthma exacerbation and placed on prednisone but was not feeling better. Patient states she is only able to walk 1/2 block due to MARQUEZ. History Source: Patient Limitations to Obtaining History: No Limitations - Past Medical History Pulmonary: Yes: Asthma ...LMP: 08/18/16 - Smoking History Smoking history: Never smoked Have you smoked in the past 12 months: No Aproximately how many cigarettes per day: 0 - Alcohol/Substance Use Hx Alcohol Use: No - Social History Usual Living Arrangement: Yes: Alone ADL: Independent History of Recent Travel: No Home Medications - Allergies Allergies/Adverse Reactions: Allergies Allergy/AdvReac Type Severity Reaction Status Date / Time No Known Allergies Allergy Verified 10/11/18 11:29 - Home Medications Home Medications: Ambulatory Orders Albuterol 0.083% Nebulizer Lena [Ventolin 0.083% Nebulizer Soln -] 1 neb NEB QID PRN #60 amp 06/30/16 Albuterol Sulfate Inhaler - [Ventolin HFA Inhaler -] 1 - 2 inh IH QID 06/30/16 Fluticasone Prop 0.05% Nasal [Flonase -] 1 spray NS BID #1 spray 09/01/16 Montelukast Na [Singulair -] 10 mg PO HS #20 tablet 09/01/16 Sodium Chloride Nasal [place] [[place] Nasal [place] -] 2 spray NS TID PRN #1 bottle 09/01/16 predniSONE [Deltasone -] 30 mg PO BID #30 tablet 09/01/16 Prednisone [Deltasone] 40 mg PO DAILY #8 tablet 11/22/17 Albuterol 2.5/Ipratropium 0.5 [Duoneb -] 1 neb NEB Q4H #20 vial 03/27/18 Olopatadine HCl [Patanol] 5 ml OP DAILY #1 bottle 03/30/18 Budesonide/Formeterol Fumarate [SYMBICORT 160/4.5mcg -] 1 inh PO BID 06/11/18 Fluticasone/Salmeterol [Advair 250-50 Diskus] 1 each IH BID 06/11/18 Amoxicillin - [Amoxicillin 500mg Capsule -] 500 mg PO TID #21 capsule 08/13/18 Ibuprofen 800 mg PO TID #15 tablet 08/13/18 Review of Systems - Review of Systems Constitutional: reports: Lethargy Eyes: reports: No Symptoms HENT: reports: No Symptoms Neck: reports: No Symptoms Cardiovascular: reports: No Symptoms Respiratory: reports: Cough (productive with yellow phlegm), SOB Gastrointestinal: reports: No Symptoms Genitourinary: reports: No Symptoms Breasts: reports: No Symptoms Reported Musculoskeletal: reports: No Symptoms Integumentary: reports: No Symptoms Neurological: reports: No Symptoms Endocrine: reports: No Symptoms Hematology/Lymphatic: reports: No Symptoms Psychiatric: reports: No Symptoms Physical Examination Vital Signs: Vital Signs Temperature 98.3 F 10/11/18 18:23 Pulse Rate 92 H 10/11/18 18:23 Respiratory Rate 16 10/11/18 18:23 Blood Pressure 142/79 10/11/18 18:23 O2 Sat by Pulse Oximetry (%) 98 10/11/18 18:23 Constitutional: Yes: Well Nourished, Calm Eyes: Yes: Conjunctiva Clear Neck: Yes: Supple Cardiovascular: Yes: Regular Rate and Rhythm Respiratory: Yes: Wheezes (Bilaterally) Gastrointestinal: Yes: Normal Bowel Sounds, Soft Musculoskeletal: Yes: WNL Extremities: Yes: WNL Edema: No Integumentary: Yes: WNL Neurological: Yes: Alert, Oriented Psychiatric: Yes: Alert, Oriented Labs: CBC, BMP 10/11/18 12:45 10/11/18 12:45 Imaging - Results Chest X-ray: Report Reviewed (no acute pathology) Problem List - Problems (1) Asthma exacerbation Code(s): J45.901 - UNSPECIFIED ASTHMA WITH (ACUTE) EXACERBATION Qualifiers: Asthma severity: moderate Asthma persistence: persistent Qualified Code(s ): J45.41 - Moderate persistent asthma with (acute) exacerbation Assessment/Plan -admit to med-surg -pulm consult made -IV methylprednisone -cont spiriva and tudorza -albuterl and duoneb tx PRN -O2 via NC PRN, keep SpO2 >90% -monitor peak flow -regular diet -dvt ppx -OOB to chair as tolerated
[2018-10-11] MEDS: methylPREDNISolone NA SUCC 40 MG/1 ML VIAL IVPUSH SCH (20:36)
[2018-10-11] MEDS: MONTELUKAST NA 10 MG TABLET PO SCH (22:12)
[2018-10-12] MEDS: methylPREDNISolone NA SUCC 40 MG/1 ML VIAL IVPUSH SCH ×4 (03:39→21:10)
[2018-10-12 08:03] LABS: HEMATOCRIT 37.3 % (32.4-45.2); HEMOGLOBIN 12.2 GM/dL (10.7-15.3); MCH 27.3 pg (25.7-33.7); MCHC 32.7 g/dl (32.0-36.0); MEAN CELL VOLUME 83.4 fl (80-96); MEAN PLT VOLUME 8.4 fl (7.5-11.1); PLATELET COUNT 394 K/MM3 (134-434); RBC 4.48 M/mm3 (3.60-5.2); RDW 15.1 % (11.6-15.6)
[2018-10-12 08:20] LABS: ALBUMIN 3.6 g/dl (3.4-5.0); ALK PHOS 72 U/L (45-117); ANION GAP 12 MMOL/L (8-16); BILIRUBIN,TOTAL 0.3 mg/dL (0.2-1); BLOOD UREA NITROGEN 19 mg/dL (7-18); CALCIUM 9.2 mg/dL (8.5-10.1); CHLORIDE 104 mmol/L (98-107); CO2 22 mmol/L (21-32); CREATININE 0.8 mg/dL (0.55-1.3); GLUCOSE,RANDOM 136 mg/dL (74-106); POTASSIUM 4.6 mmol/L (3.5-5.1); SGOT/AST 4 U/L (15-37); SGPT/ALT 15 U/L (13-61); SODIUM 138 mmol/L (136-145); TOT PROT 6.9 g/dl (6.4-8.2)
--- NOTE | 2018-10-12 08:36 | PN ---
Progress Note, Physician History of Present Illness: 43-year-old female with a history of asthma (intubated in 2009 with several hospitalizations since then; maintained on daily Tudorza, Singulair, Symbicort, and albuterol nebs prn) who was started on prednisone taper for asthma exacerbation x 1 wk ago. She is now down to 40mg daily. Symptoms are not worsening, but also have not improved after 1 week of therapy. She is only able to walk a short distance because of MARQUEZ. She has cough productive of minimal sputum and chest pain/tightness with coughing or walking. She denies fevers/ chills, chest pain at rest, or any other symptoms. - Current Medication List Current Medications: Active Medications Albuterol Sulfate (Ventolin 0.083% Nebulizer Soln -) 1 amp NEB Q4H PRN PRN Reason: SHORT OF BREATH/WHEEZING Loratadine (Claritin -) 10 mg PO DAILY MULU Methylprednisolone Sodium Succinate (Solu-Medrol -) 60 mg IVPUSH Q6H-IV MULU Last Admin: 10/12/18 03:39 Dose: 60 mg Montelukast Sodium (Singulair -) 10 mg PO HS MULU Last Admin: 10/11/18 22:12 Dose: 10 mg Tiotropium [place] (Spiriva Respimat) 2 puff IH DAILY MULU - Objective Vital Signs: Vital Signs Temperature 97.9 F 10/12/18 06:39 Pulse Rate 74 10/12/18 06:39 Respiratory Rate 20 10/12/18 06:39 Blood Pressure 130/60 10/12/18 06:39 O2 Sat by Pulse Oximetry (%) 95 10/11/18 23:00 Cardiovascular: Yes: Regular Rate and Rhythm Respiratory: Yes: Diminished, On Nasal O2, Rhonchi, Wheezes Gastrointestinal: Yes: Normal Bowel Sounds, Soft Labs: CBC, BMP 10/12/18 06:30 10/12/18 06:30 Problem List - Problems (1) Chest pain Assessment/Plan: -CE and EKG -Echo -Cardiology consult Code(s): R07.9 - CHEST PAIN, UNSPECIFIED (2) HTN (hypertension) Assessment/Plan: -Monitor Code(s): I10 - ESSENTIAL (PRIMARY) HYPERTENSION (3) Moderate persistent chronic asthma with acute exacerbation Assessment/Plan: -IV steroids -Nebs Code(s): J45.41 - MODERATE PERSISTENT ASTHMA WITH (ACUTE) EXACERBATION
[2018-10-12] MEDS ORDERED: TIOTROPIUM BROMIDE 2.5 MCG (SPIRIVA) RESPIMAT INHALER IH SCH (10:00)
[2018-10-12] MEDS ORDERED: PT OWN MED DRAWER 7, Y5N ONE (10:01)
[2018-10-12] MEDS: LORATADINE 10 MG TABLET PO SCH (10:03)
--- NOTE | 2018-10-12 14:02 | PN ---
Progress Note (short form) - Note Progress Note: PULMONARY Breathing better today but still with nonproductive cough and wheezing. Has not received any nebulizer treatments on floor. Vital Signs Period Temp Pulse Resp BP Sys/Carlson Pulse Ox Last 24 Hr 97.9 F-98.3 F 74-92 16-22 130-148/60-87 95-98 Gen: NAD at rest Heart: RRR Lung: bilateral rhonchi, wheezes Abd: soft, nontender Ext: no edema CBC, BMP 10/12/18 06:30 10/12/18 06:30 Active Medications Albuterol Sulfate (Ventolin 0.083% Nebulizer Soln -) 1 amp NEB Q4H PRN PRN Reason: SHORT OF BREATH/WHEEZING Loratadine (Claritin -) 10 mg PO DAILY [facility] Last Admin: 10/12/18 10:03 Dose: 10 mg Methylprednisolone Sodium Succinate (Solu-Medrol -) 60 mg IVPUSH Q6H-IV MULU Last Admin: 10/12/18 08:54 Dose: 60 mg Montelukast Sodium (Singulair -) 10 mg PO HS [facility] Last Admin: 10/11/18 22:12 Dose: 10 mg Tiotropium [place] (Spiriva Respimat) 2 puff IH DAILY [facility] Last Admin: 10/12/18 10:04 Dose: 2 puff A/P Acute Asthma Exacerbation HTN - will decrease medrol to 40mg q6h - inhaled bronchodilators standing and PRN - monitor peak flow - O2 to keep SpO2 >90% - DVT prophylaxis
--- NOTE | 2018-10-12 14:25 | EKG ---
Test Reason : Blood Pressure : / mmHG Vent. Rate : 066 BPM Atrial Rate : 066 BPM P-R Int : 126 ms QRS Dur : 086 ms QT Int : 428 ms P-R-T Axes : 053 046 039 degrees QTc Int : 448 ms NORMAL SINUS RHYTHM NORMAL ECG WHEN COMPARED WITH ECG OF 27-MAR-2018 10:42, NO SIGNIFICANT CHANGE WAS FOUND Confirmed by EKATERINA BRAGA MD ([id number]) on 10/12/2018 2:25:16 PM Referred By: Henny STEWART Confirmed By:EKATERINA BRAGA MD
--- NOTE | 2018-10-12 15:02 | CON.CARD ---
Consult Consult Specialty:: Cardiology - History of Present Illness Chief Complaint: SOB. Chest pain History of Present Illness: This is a 43 year old female with a PMH of asthma now on a steroid taper. She developed chest pain. She described a mid sternal chest tightness while walking up stairs. Non radiating, no associated nausea or diaphoresis. Presently CP free. EKG normal Trop neg x1 - Past Medical History Pulmonary: Yes: Asthma ...LMP: 08/18/16 ...: No - Alcohol/Substance Use Hx Alcohol Use: No - Smoking History Smoking history: Never smoked Have you smoked in the past 12 months: No Aproximately how many cigarettes per day: 0 - Social History ADL: Independent History of Recent Travel: No Home Medications - Allergies Allergies/Adverse Reactions: Allergies Allergy/AdvReac Type Severity Reaction Status Date / Time No Known Allergies Allergy Verified 10/11/18 11:29 - Home Medications Home Medications: Ambulatory Orders Albuterol 0.083% Nebulizer Lena [Ventolin 0.083% Nebulizer Soln -] 1 [facility] QID PRN #60 amp 06/30/16 Albuterol Sulfate Inhaler - [Ventolin HFA Inhaler -] 1 - 2 inh IH QID 06/30/16 Fluticasone Prop 0.05% Nasal [Flonase -] 1 spray NS BID #1 spray 09/01/16 Montelukast Na [Singulair -] 10 mg PO HS #20 tablet 09/01/16 predniSONE [Deltasone -] 30 mg PO BID #30 tablet 09/01/16 Prednisone [Deltasone] 40 mg PO DAILY #8 tablet 11/22/17 Albuterol 2.5/Ipratropium 0.5 [Duoneb -] 1 [facility] Q4H #20 vial 03/27/18 Budesonide/Formeterol Fumarate [SYMBICORT 160/4.5mcg -] 1 inh PO BID 06/11/18 Amoxicillin - [Amoxicillin 500mg Capsule -] 500 mg PO TID #21 capsule 08/13/18 Cetirizine HCl/Pseudoephedrine [Zyrtec-D Tablet] 1 each PO DAILY 10/11/18 Vital Signs: Vital Signs Temperature 98.4 F 10/12/18 14:43 Pulse Rate 82 10/12/18 14:43 Respiratory Rate 18 10/12/18 14:43 Blood Pressure 144/64 10/12/18 14:43 O2 Sat by Pulse Oximetry (%) 96 10/12/18 09:00 Constitutional: Yes: Well Nourished HENT: Yes: WNL Neck: Yes: WNL Respiratory: Yes: Diminished (bILAT), Other Gastrointestinal: Yes: Normal Bowel Sounds JVD: No Heart Sounds: Yes: S1, S2 (No MRHG) Extremities: Yes: WNL Edema: No Neurological: Yes: Alert, Oriented - Other Data Labs, Other Data: CBC, BMP 10/12/18 06:30 10/12/18 06:30 Troponin, BNP 10/12/18 12:30 Troponin I < 0.02 Troponin, BNP 10/12/18 12:30 Troponin I < 0.02 Assessment/Plan 43 year old female with a PMH of asthma now on a steroid taper. She developed chest pain. She described a mid sternal chest tightness while walking up stairs. Non radiating, no associated nausea or diaphoresis. Presently CP free. EKG normal Trop neg x1 Chest pain Both typical and atypical features Would favor a stress test when fully over her asthma exacerbation, can be done as an out patient. No signs of CHF. Call us PRN
--- NOTE | 2018-10-12 15:30 | ECHO ---
Name: MAXIMNGUYEN NORAH ISAACS Exam:Adult Echocardiogram Study Date: 10/12/2018 02:15 PM Age: 43 yrs Reason For Study: CHEST PAIN Height: 63 in Weight: 196 lb BSA: 1.9 m2 MMode/2D Measurements & Calculations IVSd: 0.91 cm Ao root diam: 3.2 cm LVIDd: 5.3 cm LA dimension: 3.7 cm LVIDs: 2.6 cm ACS: 1.9 cm LVPWd: 0.87 cm IVSs: 1.4 cm LVPWs: 1.3 cm EDV(Teich): 136.1 ml ESV(Teich): 25.7 ml Doppler Measurements & Calculations MV E max rubén: 106.4 cm/sec Ao V2 max: 164.1 cm/sec MV A max rubén: 82.9 cm/sec Ao max P.8 mmHg MV E/A: 1.3 Ao V2 mean: 116.7 cm/sec Ao mean P.3 mmHg Ao V2 VTI: 33.3 cm TR max rubén: 204.4 cm/sec PA V2 max: 148.0 cm/sec TR max P.4 mmHg PA max P.8 mmHg PA V2 mean: 102.4 cm/sec PA mean P.9 mmHg PA V2 VTI: 35.0 cm Med Peak E' Rubén: 7.6 cm/sec Med E/e': 14.0 Lat Peak E' Rubén: 13.0 cm/sec Lat E/e': 8.2 Procedure A two-dimensional transthoracic echocardiogram with color flow and Doppler was performed. Left Ventricle There is mild concentric left ventricular hypertrophy. The left ventricular ejection fraction is norm al. Left Ventricular Filling pattern is normal for age. No regional wall motion abnormalities noted. Right Ventricle The right ventricle is normal in size and function. Atria Normal left and right atrial size and function. Mitral Valve The mitral valve is normal in structure and function. There is no mitral valve stenosis. There is tra ce mitral regurgitation. Tricuspid Valve There is mild tricuspid valve thickening. There is no tricuspid stenosis. There is mild tricuspid regurgitation. Right ventricular systolic pressure is normal. Aortic Valve The aortic valve is not well visualized. No hemodynamically significant valvular aortic stenosis. No aortic regurgitation is present. Pulmonic Valve The pulmonic valve is not well visualized. Great Vessels The aortic root is normal size. Pericardium/Pleura There is no pericardial effusion. Interpretation Summary There is mild concentric left ventricular hypertrophy. The left ventricular ejection fraction is normal. There is mild tricuspid regurgitation. Right ventricular systolic pressure is normal. No regional wall motion abnormalities noted. There is trace mitral regurgitation. Left Ventricular Filling pattern is normal for age. MD Eder Grajeda 10/12/2018 03:30 PM
[2018-10-12] MEDS: ALBUTEROL SO4 2.5/IPRATROPIUM 0.5 INH SOL 3 ML VIAL.NEB. NEB SCH ×2 (16:20→21:00)
[2018-10-12] MEDS: MONTELUKAST NA 10 MG TABLET PO SCH (21:10)
[2018-10-13] MEDS: methylPREDNISolone NA SUCC 40 MG/1 ML VIAL IVPUSH SCH ×3 (03:00→17:45)
[2018-10-13] MEDS: ALBUTEROL SO4 2.5/IPRATROPIUM 0.5 INH SOL 3 ML VIAL.NEB. NEB SCH ×4 (07:35→20:31)
[2018-10-13] MEDS: LORATADINE 10 MG TABLET PO SCH (09:49)
--- NOTE | 2018-10-13 10:14 | PN ---
Progress Note (short form) - Note Progress Note: PULMONARY Breathing continues to improve. Peak flow ordered but not done. Reports best peak flow close to 400. Vital Signs Period Temp Pulse Resp BP Sys/Carlson Pulse Ox Last 24 Hr 97.7 F-98.4 F 60-82 18-22 144-150/64-79 96 Gen: NAD at rest Heart: RRR Lung: less wheezes Abd: soft, nontender Ext: no edema CBC, BMP 10/12/18 06:30 10/12/18 06:30 Active Medications Albuterol Sulfate (Ventolin 0.083% Nebulizer Soln -) 1 amp NEB Q4H PRN PRN Reason: SHORT OF BREATH/WHEEZING Albuterol/Ipratropium (Duoneb -) 1 amp NEB RQID MULU Last Admin: 10/13/18 07:35 Dose: 1 amp Loratadine (Claritin -) 10 mg PO DAILY MULU Last Admin: 10/13/18 09:49 Dose: 10 mg Methylprednisolone Sodium Succinate (Solu-Medrol -) 40 mg IVPUSH Q6H-IV MULU Last Admin: 10/13/18 09:50 Dose: 40 mg Montelukast Sodium (Singulair -) 10 mg PO HS MULU Last Admin: 10/12/18 21:10 Dose: 10 mg A/P Acute Asthma Exacerbation HTN - will decrease medrol to 40mg q8h - if continues to improve and peak flow adequate, can likely change steroids to PO prednisone 40mg daily and taper as outpt - inhaled bronchodilators standing and PRN - monitor peak flow - O2 to keep SpO2 >90% - DVT prophylaxis
--- NOTE | 2018-10-13 13:49 | PN ---
Progress Note, Physician Chief Complaint: Asthma Exacerbation History of Present Illness: On IV medrol Seen by Pulmonary Feels much better - Current Medication List Current Medications: Active Medications Albuterol Sulfate (Ventolin 0.083% Nebulizer Soln -) 1 amp NEB Q4H PRN PRN Reason: SHORT OF BREATH/WHEEZING Albuterol Sulfate (Ventolin Hfa Inhaler -) 2 puff IH Q4H PRN PRN Reason: SHORT OF BREATH/WHEEZING Albuterol/Ipratropium (Duoneb -) 1 amp NEB RQID [facility] Last Admin: 10/13/18 11:26 Dose: 1 amp Loratadine (Claritin -) 10 mg PO DAILY [facility] Last Admin: 10/13/18 09:49 Dose: 10 mg Methylprednisolone Sodium Succinate (Solu-Medrol -) 40 mg IVPUSH Q8H-IV MULU Montelukast Sodium (Singulair -) 10 mg PO HS [facility] Last Admin: 10/12/18 21:10 Dose: 10 mg - Objective Vital Signs: Vital Signs Temperature 97.7 F 10/13/18 06:37 Pulse Rate 60 10/13/18 06:37 Respiratory Rate 20 10/13/18 06:37 Blood Pressure 150/79 10/13/18 06:37 O2 Sat by Pulse Oximetry (%) 96 10/12/18 21:00 Constitutional: Yes: Well Nourished, No Distress, Calm Cardiovascular: Yes: Regular Rate and Rhythm Respiratory: Yes: Regular Gastrointestinal: Yes: Normal Bowel Sounds, Soft, Abdomen, Obese Musculoskeletal: Yes: WNL Extremities: Yes: WNL Edema: No Peripheral Pulses WNL: Yes Neurological: Yes: Alert, Oriented Psychiatric: Yes: Alert, Oriented Labs: CBC, BMP 10/12/18 06:30 10/12/18 06:30 Problem List - Problems (1) Asthma exacerbation Assessment/Plan: -IV medrol -Bronchodilators -Pulmonary consult Code(s): J45.901 - UNSPECIFIED ASTHMA WITH (ACUTE) EXACERBATION Qualifiers: Asthma severity: moderate Asthma persistence: persistent Qualified Code(s ): J45.41 - Moderate persistent asthma with (acute) exacerbation Assessment/Plan see problem list Self ambulatory D/C home in AM o n tapering dose of prednisone
[2018-10-13] MEDS: MONTELUKAST NA 10 MG TABLET PO SCH (21:28)
[2018-10-13] MEDS: ALBUTEROL SO4 8 GM HFA INHALER IH PRN (21:42)
[2018-10-13] MEDS ORDERED: PT OWN MED DRAWER 7, Y5N ONE (22:09)
[2018-10-14] MEDS: methylPREDNISolone NA SUCC 40 MG/1 ML VIAL IVPUSH SCH ×2 (01:51→09:34)
[2018-10-14] MEDS: ALBUTEROL SO4 2.5/IPRATROPIUM 0.5 INH SOL 3 ML VIAL.NEB. NEB SCH (07:58)
[2018-10-14] MEDS: LORATADINE 10 MG TABLET PO SCH (09:34)
--- NOTE | 2018-10-14 09:39 | PN ---
Progress Note, Physician - Current Medication List Current Medications: Active Medications Albuterol Sulfate (Ventolin 0.083% Nebulizer Soln -) 1 amp NEB Q4H PRN PRN Reason: SHORT OF BREATH/WHEEZING Albuterol Sulfate (Ventolin Hfa Inhaler -) 2 puff IH Q4H PRN PRN Reason: SHORT OF BREATH/WHEEZING Last Admin: 10/13/18 21:42 Dose: 2 puff Albuterol/Ipratropium (Duoneb -) 1 amp NEB RQID [facility] Last Admin: 10/14/18 07:58 Dose: 1 amp Loratadine (Claritin -) 10 mg PO DAILY [facility] Last Admin: 10/14/18 09:34 Dose: 10 mg Methylprednisolone Sodium Succinate (Solu-Medrol -) 40 mg IVPUSH Q8H-IV [facility] Last Admin: 10/14/18 09:34 Dose: 40 mg Montelukast Sodium (Singulair -) 10 mg PO HS [facility] Last Admin: 10/13/18 21:28 Dose: 10 mg - Objective Vital Signs: Vital Signs Temperature 98 F 10/14/18 06:00 Pulse Rate 63 10/14/18 06:00 Respiratory Rate 20 10/14/18 06:00 Blood Pressure 137/76 10/14/18 06:00 O2 Sat by Pulse Oximetry (%) 96 10/13/18 21:00 Cardiovascular: Yes: Regular Rate and Rhythm Respiratory: Yes: Regular, CTA Bilaterally Gastrointestinal: Yes: Normal Bowel Sounds, Soft Labs: CBC, BMP 10/12/18 06:30 10/12/18 06:30 Problem List - Problems (1) Chest pain Assessment/Plan: -CE and EKG -Echo -Cardiology consult noted -Stress test Code(s): R07.9 - CHEST PAIN, UNSPECIFIED (2) HTN (hypertension) Code(s): I10 - ESSENTIAL (PRIMARY) HYPERTENSION (3) Moderate persistent chronic asthma with acute exacerbation Assessment/Plan: -IV steroids to Po -Nebs Code(s): J45.41 - MODERATE PERSISTENT ASTHMA WITH (ACUTE) EXACERBATION
--- NOTE | 2018-10-14 11:57 | PN ---
Progress Note (short form) - Note Progress Note: PULMONARY DOWN FOR STRESS TEST Chase LAWSON MD
[2018-10-14] MEDS: ALBUTEROL SO4 8 GM HFA INHALER IH PRN (12:36)
[2018-10-14 13:32] VITALS: BP 138/79; PULSE 75; TEMP 97.6
[2018-10-14] MEDS ORDERED: predniSONE 10 MG TABLET (UD) PO SCH (22:00)
== END 2018-10-14 14:20 | disposition home or self-care (01) | DRG 203 ==
LOC: JER 11:13 → JERBED 13:48 → J8W 18:22
PROVIDERS: ADMIT Family Medicine; ATTEND Family Medicine
DX: J45.41 Moderate persistent asthma with (acute) exacerbation (principal); I10 Essential (primary) hypertension; R07.89 Other chest pain
CPT/HCPCS: 36415; 71046-TC-FY; 78452-TC; 80053; 82550; 84484; 84703; 85025; 85027; 93005; 93010; 93017; 93306-TC; 94150; 94640; 99283-25; A9502

== ENCOUNTER 2019-03-31 19:32 | Emergency (ER) | payer OTHER ==
[2019-03-31] MEDS ORDERED: DEXAMETHASONE LIQUID 0.5 MG/5 ML 240 ML BULK BOTTLE PO ONE (19:36)
--- NOTE | 2019-03-31 19:36 | PDOC ---
Rapid Medical Evaluation Time Seen by Provider: 03/31/19 19:34 Medical Evaluation: Allergies Allergy/AdvReac Type Severity Reaction Status Date / Time No Known Allergies Allergy Verified 10/11/18 11:29 03/31/19 19:35 HPI: Asthma exacerbation x1 week PE: tight breath sounds with diffuse expiratory wheezing ORDERS: decadron and duo nebs Discharge Disposition - Diagnosis Asthma exacerbation - Referrals - Patient Instructions - Post Discharge Activity
[2019-03-31 19:45] VITALS: BP 165/70; PULSE 90; TEMP 98.9; BMI 34.0
--- NOTE | 2019-03-31 19:54 | PDOC ---
History of Present Illness - General Chief Complaint: Asthma Stated Complaint: SOB Time Seen by Provider: 03/31/19 19:34 History Source: Patient Exam Limitations: No Limitations Past History - Travel Traveled outside of the country in the last 30 days: No Close contact w/someone who was outside of country & ill: No - Past Medical History Allergies/Adverse Reactions: Allergies Allergy/AdvReac Type Severity Reaction Status Date / Time No Known Allergies Allergy Verified 03/31/19 19:45 Home Medications: Ambulatory Orders Albuterol 0.083% Nebulizer Lena [Ventolin 0.083% Nebulizer Soln -] 1 neb NEB QID PRN #60 amp 06/30/16 Albuterol Sulfate Inhaler - [Ventolin HFA Inhaler -] 1 - 2 inh IH QID 06/30/16 Fluticasone Prop 0.05% Nasal [Flonase -] 1 spray NS BID #1 spray 09/01/16 Albuterol 2.5/Ipratropium 0.5 [Duoneb -] 1 [facility] NEB Q4H #20 vial 03/27/18 Budesonide/Formeterol Fumarate [SYMBICORT 160/4.5mcg -] 1 inh PO BID 06/11/18 Amoxicillin - [Amoxicillin 500mg Capsule -] 500 mg PO TID #21 capsule 08/13/18 Montelukast Na [Singulair -] 10 mg PO HS #30 tablet 10/13/18 predniSONE [Deltasone -] 10 mg PO BID #30 tablet 10/13/18 Albuterol 2.5/Ipratropium 0.5 [Duoneb -] 1 [facility] Q4H #20 vial 03/31/19 predniSONE [Deltasone -] 40 mg PO DAILY #8 tablet 03/31/19 Anemia: No Asthma: Yes (INTUBATED 2009) COPD: No - Surgical History Orthopedic Surgery: Yes (scope/torn meniscus) - Family Disease History Family Disease History: Respiratory: Mother (asthma now) - Immunization History Td Vaccination: No TDAP Vaccination: No Immunization Up to Date: Yes - Suicide/Smoking/Psychosocial Hx Smoking Status: No Smoking History: Former smoker Have you smoked in the past 12 months: No Number of Cigarettes Smoked Daily: 0 Cigars Per Day: 0 Information on smoking cessation initiated: No Hx Alcohol Use: No Drug/Substance Use Hx: No Substance Use Type: None Hx Substance Use Treatment: No Review of Systems - Review of Systems Able to Perform ROS?: Yes Comments:: 03/31/19 20:30 CONSTITUTIONAL: Absent: fever, chills, diaphoresis, generalized weakness, malaise, loss of appetite HEENT: Absent: rhinorrhea, nasal congestion, throat pain, throat swelling, difficulty swallowing, mouth swelling, ear pain, eye pain, visual Changes CARDIOVASCULAR: Absent: chest pain, loss of consciousness, palpitations, irregular heart rate, peripheral edema RESPIRATORY: Present: cough, wheezing, shortness of breath Absent: dyspnea with exertion, orthopnea, stridor, hemoptysis GASTROINTESTINAL: Absent: abdominal pain, abdominal distension, nausea, vomiting, diarrhea, constipation, melena, hematochezia GENITOURINARY: Absent: dysuria, frequency, urgency, hesitancy, hematuria, flank pain, genital pain MUSCULOSKELETAL: Absent: myalgia, arthralgia, joint swelling SKIN: Absent: rash, itching, pallor HEMATOLOGIC/IMMUNOLOGIC: Absent: easy bleeding, easy bruising, lymphadenopathy, frequent infections ENDOCRINE: Absent: unexplained weight gain, unexplained weight loss, heat intolerance, cold intolerance NEUROLOGIC: Absent: headache, focal weakness or paresthesias, dizziness, unsteady gait, seizure, mental status changes, bladder or bowel incontinence PSYCHIATRIC: Absent: anxiety, depression, suicidal or homicidal ideation, hallucinations. Is the patient limited Uzbek proficient: No *Physical Exam - Vital Signs Last Vital Signs Temp Pulse Resp BP Pulse Ox 98.9 F 90 16 165/70 100 03/31/19 19:39 03/31/19 19:39 03/31/19 19:39 03/31/19 19:39 03/31/19 19:39 - Physical Exam Comments: 03/31/19 20:31 GENERAL: Well developed, well nourished. Awake and alert. No acute distress. HEENT: Normocephalic, atraumatic. PERRLA, EOMI. No conjunctival pallor. Sclera are non- icteric. Moist mucous membranes. Oropharynx is clear. NECK: Supple. Full ROM. No JVD. Carotid pulses 2+ and symmetric, without bruits. No thyromegaly. No lymphadenopathy. CARDIOVASCULAR: Regular rate and rhythm. No murmurs, rubs, or gallops. Distal pulses are 2+ and symmetric. PULMONARY: No evidence of respiratory distress. Lungs with expiratory wheezing. Poor aeration to the bases. No rales or rhonchi. ABDOMINAL: Soft. Non-tender. Non-distended. No rebound or guarding. No organomegaly. Normoactive bowel sounds. MUSCULOSKELETAL Normal range of motion at all joints. No bony deformities or tenderness. No CVA tenderness. EXTREMITIES: No cyanosis. No clubbing. No edema. No calf tenderness. SKIN: Warm and dry. Normal capillary refill. No rashes. No jaundice. NEUROLOGICAL: Alert, awake, appropriate. Cranial nerves 2-12 intact. No deficits to light touch and temperature in face, upper extremities and lower extremities. No motor deficits in the in face, upper extremities and lower extremities. Normoreflexic in the upper and lower extremities. Normal speech. Toes are down- going bilaterally. Gait is normal without ataxia. PSYCHIATRIC: Cooperative. Good eye contact. Appropriate mood and affect. Medical Decision Making - Medical Decision Making 03/31/19 20:33 The patient is a 43-year-old female past medical history of asthma, who presents to the emergency department today for shortness of breath for the last week. She states that she has been taking prednisone at home as well as her nebulizers but they have not been helping her symptoms. She's been intubated for her asthma in the past in 2009. Also admits to shortness of breath and dyspnea on exertion. A/P: Asthma exacerbation On exam patient with poor aeration of the bases and scattered wheezes. Patient's satting 100 on room air. Decadron, DuoNeb's ordered Reevaluate 03/31/19 21:38 patient now with more wheezing however fair aeration to the bases. still satting 100 on room air. We'll discharge home with DuoNeb, prednisone. Pt already on Advair Respiratory to see the patient, per the asthma action plan. *DC/Admit/Observation/Transfer Diagnosis at time of Disposition: Asthma exacerbation Qualifiers: Asthma severity: mild Asthma persistence: intermittent Qualified Code(s): J45.21 - Mild intermittent asthma with (acute) exacerbation - Discharge Dispostion Disposition: HOME Condition at time of disposition: Stable Decision to Admit order: No - Prescriptions Prescriptions: Albuterol 2.5/Ipratropium 0.5 [Duoneb -] 1 neb NEB Q4H #20 vial predniSONE [Deltasone -] 40 mg PO DAILY #8 tablet - Referrals Referrals: Alise Oliveira MD [Primary Care Provider] - Rip Resendez MD [Staff Physician] - - Patient Instructions Printed Discharge Instructions: DI for Asthma -- Adult Additional Instructions: You were evaluated for your asthma today. Please use the DuoNeb treatments every 4 hours until her symptoms resolve. Please take the prednisone as directed starting tomorrow. You may use the spacer when you use her inhalers. Follow-up with your primary care doctor on Wednesday. Return to the ER for difficulty breathing, worsening wheezing, shortness of breath, fever, or if you've any changes in your symptoms. - Post Discharge Activity Forms/Work/School Notes: Back to Work
[2019-03-31] MEDS ORDERED: ALBUTEROL SO4 2.5/IPRATROPIUM 0.5 INH SOL 3 ML VIAL.NEB. NEB ONE (20:00)
[2019-03-31] MEDS: ALBUTEROL SO4 2.5/IPRATROPIUM 0.5 INH SOL 3 ML VIAL.NEB. NEB SCH ×3 (20:00→20:25)
[2019-03-31] MEDS ORDERED: DEXAMETHASONE SOD PHOSPHATE 10 MG/1 ML VIAL ONE (20:00)
== END 2019-03-31 22:40 | disposition home or self-care (01) ==
LOC: JERFT 19:32
PROC: 3E0F7GC Introduction of Other Therapeutic Substance into Respiratory Tract, Via Natural or Artificial Opening (ICD-10-PCS; principal; 2019-03-31)
DX: J45.21 Mild intermittent asthma with (acute) exacerbation (principal)
CPT/HCPCS: 94664; 99281-25

== ENCOUNTER 2019-11-29 13:06 | Emergency (ER) | payer OTHER ==
[2019-11-29 13:30] VITALS: BP 136/71; PULSE 73; TEMP 98.2; BMI 33.6
[2019-11-29] MEDS ORDERED: KETOROLAC TROMETHAMINE 60 MG/2 ML VIAL IM ONE (14:20)
--- NOTE | 2019-11-29 14:26 | PDOC ---
History of Present Illness - General Chief Complaint: Pain Stated Complaint: RT KNEE PAIN Time Seen by Provider: 11/29/19 14:05 History Source: Patient - History of Present Illness Occurred: reports: other Lower Extremity Pain Location: right: knee Past History - Past Medical History Allergies/Adverse Reactions: Allergies Allergy/AdvReac Type Severity Reaction Status Date / Time No Known Allergies Allergy Verified 11/29/19 13:30 Home Medications: Ambulatory Orders Albuterol 0.083% Nebulizer Lena [Ventolin 0.083% Nebulizer Soln -] 1 neb NEB QID PRN #60 amp 06/30/16 Albuterol Sulfate Inhaler - [Ventolin HFA Inhaler -] 1 - 2 inh IH QID 06/30/16 Fluticasone Prop 0.05% Nasal [Flonase -] 1 spray NS BID #1 spray 09/01/16 Albuterol 2.5/Ipratropium 0.5 [Duoneb -] 1 [facility] NEB Q4H #20 vial 03/27/18 Budesonide/Formeterol Fumarate [SYMBICORT 160/4.5mcg -] 1 inh PO BID 06/11/18 Amoxicillin - [Amoxicillin 500mg Capsule -] 500 mg PO TID #21 capsule 08/13/18 Montelukast Na [Singulair -] 10 mg PO HS #30 tablet 10/13/18 predniSONE [Deltasone -] 10 mg PO BID #30 tablet 10/13/18 Albuterol 2.5/Ipratropium 0.5 [Duoneb -] 1 [facility] Q4H #20 vial 03/31/19 predniSONE [Deltasone -] 40 mg PO DAILY #8 tablet 03/31/19 Ibuprofen [Motrin -] 800 mg PO Q6H #30 tablet 11/29/19 Anemia: No Asthma: Yes (INTUBATED 2009) COPD: No - Surgical History Orthopedic Surgery: Yes (scope/torn meniscus) - Immunization History Td Vaccination: No TDAP Vaccination: No Immunization Up to Date: Yes - Psycho Social/Smoking Cessation Hx Smoking Status: No Smoking History: Never smoked Have you smoked in the past 12 months: No Number of Cigarettes Smoked Daily: 0 Cigars Per Day: 0 Information on smoking cessation initiated: No Hx Alcohol Use: No Drug/Substance Use Hx: No Substance Use Type: None Hx Substance Use Treatment: No Review of Systems - Review of Systems Constitutional: No: Chills, Fever Musculoskeletal: Yes: Joint Pain. No: Joint Swelling *Physical Exam - Vital Signs Last Vital Signs Temp Pulse Resp BP Pulse Ox 98.2 F 73 18 136/71 100 11/29/19 13:28 11/29/19 13:28 11/29/19 13:28 11/29/19 13:28 11/29/19 13:28 - Physical Exam General Appearance: Yes: Appropriately Dressed. No: Apparent Distress HEENT: positive: Normal Voice Neck: positive: Supple Respiratory/Chest: negative: Respiratory Distress Extremity: positive: Normal Inspection. negative: Tender, Swelling Integumentary: positive: Dry, Warm Neurologic: positive: Fully Oriented, Alert, Normal Mood/Affect Medical Decision Making - Medical Decision Making 11/29/19 14:24 44-year-old female, history of obesity, asthma, here with intermittent R knee pain for several weeks. Reports achy, diffuse knee pain, worse with range of motion and weight,bearing. No trauma or other inciting factors. Denies swelling fever or chills. No history of same. Taking 600 of Motrin with no relief. see exam Atraumatic R knee pain, possibly MSK, i.e overuse, arthritis, etc exam unremarkable Dc w/ pain control and ortho referral given duration of sxs Discharge - Discharge Information Problems reviewed: Yes Clinical Impression/Diagnosis: Knee pain, right Qualifiers: Chronicity: unspecified Qualified Code(s): M25.561 - Pain in right knee Condition: Good Disposition: HOME - Additional Discharge Information Prescriptions: Ibuprofen [Motrin -] 800 mg PO Q6H #30 tablet - Follow up/Referral Referrals: Joshua Obregon MD [Staff Physician] - - Patient Discharge Instructions Patient Printed Discharge Instructions: DI for Knee Pain Additional Instructions: Cause of your knee pain is unclear at this time and you will need further evaluation by an orthopedic doctor Take medication as prescribed for pain and use Meliton for comfort - Post Discharge Activity Work/Back to School Note: Back to Work
[2019-11-29] MEDS ORDERED: KETOROLAC TROMETHAMINE 60 MG/2 ML VIAL ONE (14:27)
== END 2019-11-29 14:40 | disposition home or self-care (01) ==
LOC: JERFT 13:06
PROC: 3E0233Z Introduction of Anti-inflammatory into Muscle, Percutaneous Approach (ICD-10-PCS; principal; 2019-11-29)
DX: M25.561 Pain in right knee (principal); J45.909 Unspecified asthma, uncomplicated; E66.9 Obesity, unspecified
CPT/HCPCS: 99284-25

== ENCOUNTER 2020-03-20 19:14 | Emergency (ER) | payer OTHER ==
[2020-03-20 19:34] VITALS: TEMP 98.6; BMI 35.2
[2020-03-20] MEDS ORDERED: MAGNESIUM SULF 50% (8.12 MEQ/2 ML-1 GM VIAL) IVPB ONE (20:00)
[2020-03-20] MEDS ORDERED: DEXAMETHASONE SOD PHOSPHATE 10 MG/1 ML VIAL IVPUSH ONE (20:00)
[2020-03-20] MEDS ORDERED: DEXAMETHASONE SOD PHOSPHATE 10 MG/1 ML VIAL ONE (20:07)
[2020-03-20] MEDS ORDERED: ALBUTEROL SO4 2.5/IPRATROPIUM 0.5 INH SOL 3 ML VIAL.NEB. NEB ONE (20:07)
--- NOTE | 2020-03-20 20:07 | PDOC ---
*Physical Exam - Vital Signs Last Vital Signs Temp Pulse Resp BP Pulse Ox 98.6 F 89 22 H 145/76 95 03/20/20 19:21 03/20/20 19:21 03/20/20 19:21 03/20/20 19:21 03/20/20 19:21 ED Treatment Course - LABORATORY CBC & Chemistry Diagram: 03/20/20 21:00 03/20/20 21:00 Medical Decision Making - Medical Decision Making 03/20/20 20:07 Patient seen by the advanced practice provider under my supervision. Ancillary testing reviewed as necessary. I agree with plan as outlined by the advanced practice provider. Discharge - Discharge Information Problems reviewed: Yes Clinical Impression/Diagnosis: Asthma exacerbation Condition: Improved Disposition: HOME - Additional Discharge Information Prescriptions: Albuterol Sulfate Inhaler - [Ventolin HFA Inhaler -] 1 - 2 inh PO Q4H #1 inhaler - Follow up/Referral Referrals: Alise Oliveira MD [Primary Care Provider] - - Patient Discharge Instructions Patient Printed Discharge Instructions: Asthma -- Adult Additional Instructions: Return to the emergency room for further issues and without fail follow-up with your primary care physician in 1 to 2 days for further evaluation and treatment options. Your albuterol was refilled tonight. - Post Discharge Activity
[2020-03-20] MEDS ORDERED: MAGNESIUM 1GM/D5W - 2 GM/200 ML IVPB IVPB ONE (20:08)
[2020-03-20] MEDS: ALBUTEROL SO4 2.5/IPRATROPIUM 0.5 INH SOL 3 ML VIAL.NEB. NEB SCH ×2 (20:25→21:16)
[2020-03-20 21:26] LABS: BASO % 0.6 % (0-2.0); EOS % 1.1 % (0-4.5); HEMATOCRIT 36.2 % (32.4-45.2); HEMOGLOBIN 11.6 GM/dL (10.7-15.3); LYMPH % 11.5 % (8-40); MCH 27.4 pg (25.7-33.7); MCHC 32.1 g/dl (32.0-36.0); MEAN CELL VOLUME 85.5 fl (80-96); MEAN PLT VOLUME 8.4 fl (7.5-11.1); MONO % 5.1 % (3.8-10.2); NEUT % 81.7 % (42.8-82.8); PLATELET COUNT 391 K/MM3 (134-434); RBC 4.23 M/mm3 (3.60-5.2); RDW 15.3 % (11.6-15.6); WHITE BLOOD COUNT 19.7 K/mm3 (4.0-10.0)
[2020-03-20 22:09] LABS: ALBUMIN 3.7 g/dl (3.4-5.0); BILIRUBIN,TOTAL 0.2 mg/dL (0.2-1); BLOOD UREA NITROGEN 23.4 mg/dL (7-18); CALCIUM 9.4 mg/dL (8.5-10.1); POTASSIUM 4.2 mmol/L (3.5-5.1)
--- NOTE | 2020-03-20 22:17 | PDOC ---
History of Present Illness - General Chief Complaint: Asthma Stated Complaint: ASTHMA Time Seen by Provider: 03/20/20 19:52 - History of Present Illness Initial Comments: 03/20/20 22:15 44-year-old female with a past medical history of asthma presents for exacerbation of asthma x1 day unrelieved with her home nebulizer Past History - Medical History Allergies/Adverse Reactions: Allergies Allergy/AdvReac Type Severity Reaction Status Date / Time No Known Allergies Allergy Verified 11/29/19 13:30 Home Medications: Ambulatory Orders Albuterol 0.083% Nebulizer Lena [Ventolin 0.083% Nebulizer Soln -] 1 neb NEB QID PRN #60 amp 06/30/16 Albuterol Sulfate Inhaler - [Ventolin HFA Inhaler -] 1 - 2 inh IH QID 06/30/16 Fluticasone Prop 0.05% Nasal [Flonase -] 1 spray NS BID #1 spray 09/01/16 Albuterol 2.5/Ipratropium 0.5 [Duoneb -] 1 neb NEB Q4H #20 vial 03/27/18 Budesonide/Formeterol Fumarate [SYMBICORT 160/4.5mcg -] 1 inh PO BID 06/11/18 Amoxicillin - [Amoxicillin 500mg Capsule -] 500 mg PO TID #21 capsule 08/13/18 Montelukast Na [Singulair -] 10 mg PO HS #30 tablet 10/13/18 predniSONE [Deltasone -] 10 mg PO BID #30 tablet 10/13/18 Albuterol 2.5/Ipratropium 0.5 [Duoneb -] 1 [facility] NEB Q4H #20 vial 03/31/19 predniSONE [Deltasone -] 40 mg PO DAILY #8 tablet 03/31/19 Ibuprofen [Motrin -] 800 mg PO Q6H #30 tablet 11/29/19 Albuterol Sulfate Inhaler - [Ventolin HFA Inhaler -] 1 - 2 inh PO Q4H #1 inhaler 03/20/20 Anemia: No Asthma: Yes (INTUBATED 2009) COPD: No - Surgical History Orthopedic Surgery: Yes (scope/torn meniscus) - Immunization History Td Vaccination: No TDAP Vaccination: No Immunization Up to Date: Yes - Psycho-Social/Smoking History Smoking Status: No Smoking History: Never smoked Have you smoked in the past 12 months: No Number of Cigarettes Smoked Daily: 0 Cigars Per Day: 0 - Substance Abuse Hx (Audit-C & DAST Scrn) How often the patient has a drink containing alcohol: Never Score: In Men: 4 or > Positive; In Women: 3 or > Positive: 0 Screen Result (Pos requires Nsg. Audit-10AR): Negative In the last yr the pt used illegal drug/Rx for NonMed reason: No Score: Yes response is considered Positive: 0 Screen Result (Positive result requires Nsg. DAST-10): Negative Review of Systems - Review of Systems Constitutional: No: Fever Respiratory: Yes: Cough, Shortness of Breath, Wheezing *Physical Exam - Vital Signs Last Vital Signs Temp Pulse Resp BP Pulse Ox 98.6 F 89 22 H 145/76 95 03/20/20 19:21 03/20/20 19:21 03/20/20 19:21 03/20/20 19:21 03/20/20 19:21 - Physical Exam 03/20/20 22:16 GENERAL: The patient is awake, alert, and fully oriented, in no acute distress. HEAD: Normal with no signs of trauma. EYES: sclera anicteric, conjunctiva clear. ENT: Ears normal tympanic membranes normal oropharynx clear uvula midline NECK: Normal range of motion LUNGS: Diffuse expiratory wheezing without crackles rhonchi or rales HEART: S1 and S2 without murmur, rub or gallop. ABDOMEN: Soft, nontender, normoactive bowel sounds. No guarding, no rebound. No masses. EXTREMITIES: Normal range of motion, no edema. No clubbing or cyanosis. No cords, erythema, or tenderness. NEUROLOGICAL: Cranial nerves II through XII grossly intact. PSYCH: Normal mood, normal affect. SKIN: Warm, Dry, normal turgor, no rashes or lesions noted. ED Treatment Course - LABORATORY CBC & Chemistry Diagram: 03/20/20 21:00 03/20/20 21:00 - ADDITIONAL ORDERS Additional order review: Laboratory Results 03/20/20 21:00 Sodium 143 Potassium 4.2 Chloride 108 H Carbon Dioxide 26 Anion Gap 9 BUN 23.4 H Creatinine 1.0 Est GFR (CKD-EPI)AfAm 78.79 Est GFR (CKD-EPI)NonAf 67.98 Random Glucose 149 H Calcium 9.4 Total Bilirubin 0.2 AST 9 L ALT 26 Alkaline Phosphatase 67 Total Protein 7.0 Albumin 3.7 03/20/20 21:00 RBC 4.23 MCV 85.5 MCHC 32.1 RDW 15.3 MPV 8.4 Neutrophils % 81.7 Lymphocytes % 11.5 D Monocytes % 5.1 D Eosinophils % 1.1 D Basophils % 0.6 - Medications Given in the ED: ED Medications Discontinued Medications Generic Name Dose Route Start Last Admin Trade Name Shay PRN Reason Stop Dose Admin Albuterol/Ipratropium 1 amp 03/20/20 20:00 03/20/20 21:16 Duoneb - NEB 03/20/20 20:46 1 amp Q15M MULU Administration Dexamethasone Sodium Phosphate 10 mg 03/20/20 20:00 03/20/20 21:16 Decadron Injection - IVPUSH 03/20/20 20:01 10 mg ONCE ONE Administration Magnesium Sulfate 2 gm 03/20/20 20:00 03/20/20 21:16 Magnesium Sulfate IVPB 03/20/20 20:01 2 gm ONCE ONE Administration Medical Decision Making - Medical Decision Making 03/20/20 22:16 Clear lung sounds after 4 DuoNeb treatments IV magnesium and Decadron will send albuterol to pharmacy follow-up with primary care physician I have reviewed the pathophysiology with the patient. They are in agreement with the treatment plan all questions were answered to their satisfaction. Understanding for follow-up without fail was also conveyed to the patient. Again they are in agreement. Discharge - Discharge Information Problems reviewed: Yes Clinical Impression/Diagnosis: Asthma exacerbation Condition: Improved Disposition: HOME - Admission No - Additional Discharge Information Prescriptions: Albuterol Sulfate Inhaler - [Ventolin HFA Inhaler -] 1 - 2 inh PO Q4H #1 inhaler - Follow up/Referral Referrals: Alise Oliveira MD [Primary Care Provider] - - Patient Discharge Instructions Patient Printed Discharge Instructions: Asthma -- Adult Additional Instructions: Return to the emergency room for further issues and without fail follow-up with your primary care physician in 1 to 2 days for further evaluation and treatment options. Your albuterol was refilled tonight. - Post Discharge Activity
[2020-03-20 22:46] VITALS: BP 132/72; PULSE 76
== END 2020-03-20 22:46 | disposition home or self-care (01) ==
LOC: JER 19:14
PROC: 3E033GC Introduction of Other Therapeutic Substance into Peripheral Vein, Percutaneous Approach (ICD-10-PCS; principal; 2020-03-20)
PROC: 3E0F7GC Introduction of Other Therapeutic Substance into Respiratory Tract, Via Natural or Artificial Opening (ICD-10-PCS; principal; 2020-03-20)
DX: J45.901 Unspecified asthma with (acute) exacerbation (principal)
CPT/HCPCS: 36415; 80053; 85025; 99284-25; J1100

== ENCOUNTER 2020-05-23 07:37 | Day surgery (SDC) | payer OTHER ==
--- NOTE | 2020-05-23 07:50 | HP ---
Satellite [facility] - Chief Complaint Chief Complaint: right knee pain - Past Medical History Allergies/Adverse Reactions: Allergies Allergy/AdvReac Type Severity Reaction Status Date / Time No Known Allergies Allergy Verified 05/07/20 08:58 Pulmonary: Yes: Asthma ...LMP: 05/06/20 - Current Medications Current Medications: Home Medications Medication Instructions Recorded Budesonide/Formeterol Fumarate 1 inh PO BID 06/11/18 [SYMBICORT 160/4.5mcg -] Albuterol 0.083% Nebulizer Lena 1 amp NEB BID 05/07/20 [Ventolin 0.083% Nebulizer Soln -] Albuterol Sulfate Inhaler - 1 puff IH PRN PRN 05/07/20 [Ventolin Hfa Inhaler -] Cetirizine HCl [Zyrtec] 10 mg PO DAILY 05/07/20 Metformin HCl [Glucophage] 500 mg PO DAILY 05/07/20 Montelukast Sodium [Singulair] 10 mg PO DAILY 05/07/20 Rosuvastatin Calcium [Crestor] 10 mg PO HS 05/07/20 Pramipexole Di-HCl [Pramipexole 0.25 mg PO HS PRN 05/16/20 Dihydrochloride] Satellite Physical Exam - Physical Examination General Appearance: Well Nourished, Well Developed, Alert & Oriented x3 ENT: Clear Lung: Normal air movement Extremities: Other (right knee- + swelling, + ttp, decr rom, + mcmurrays, nvi) Neurological: Intact, Alert, Oriented Satellite Impression/Plan - Impression/Plan Impression: right knee internal dergangement Operative Procedure: right knee arthroscopy Date to be Performed: 05/23/20
[2020-05-23] MEDS ORDERED: PROPOFOL 20 ML ONE ×2 (08:57→09:37)
[2020-05-23] MEDS ORDERED: MIDAZOLAM HCL 2 MG/2 ML SINGLE DOSE VIAL ONE (08:57)
[2020-05-23] MEDS ORDERED: ONDANSETRON 4 MG/2 ML VIAL ONE (08:58)
[2020-05-23] MEDS ORDERED: DEXAMETHASONE SOD PHOSPHATE 4 MG/1 ML VIAL ONE (08:58)
[2020-05-23] MEDS ORDERED: ceFAZolin SODIUM 1 GM VIAL ONE (08:58)
[2020-05-23] MEDS ORDERED: KETOROLAC TROMETHAMINE 30 MG/1 ML VIAL ONE ×2 (08:58→12:24)
[2020-05-23] MEDS ORDERED: LIDOCAINE HCL/PF 2% SDV 5ML VIAL ONE (08:58)
[2020-05-23 09:07] VITALS: BMI 36.7
[2020-05-23] MEDS ORDERED: ALBUTEROL SO4 0.083% IH SOL 2.5 MG/3 ML VIAL.NEB. NEB ONE (10:05)
[2020-05-23] MEDS ORDERED: methylPREDNISolone NA SUCC 40 MG/1 ML VIAL ONE (10:09)
[2020-05-23] MEDS ORDERED: oxyCODONE HCL 5 MG TABLET PO PRN (10:17)
[2020-05-23] MEDS ORDERED: ONDANSETRON 4 MG/2 ML VIAL IVPUSH PRN (10:17)
[2020-05-23] MEDS ORDERED: BUDESONIDE 0.5 MG/2 ML INH SUSP VIAL NEB ONE (10:18)
[2020-05-23] MEDS ORDERED: LACTATED RINGERS SOLUTION 1,000 ML IV SCH (10:30)
--- NOTE | 2020-05-23 11:34 | OP ---
Operative Note - Note: Operative Date: 05/23/20 Pre-Operative Diagnosis: right knee pain, Medial meniscus tear Operation: right knee arthroscopy, partial medial meniscectomy, plica excision Post-Operative Diagnosis: Same as Pre-op Surgeon: Joshua Obregon Anesthesiologist/OUTSIDE MACHINIST APPRENTICE: Ricardo Hernandez Anesthesia: Spinal, MAC Specimens Removed: shavings Estimated Blood Loss (mls): 0 Drains, Volume Out (mls): 0 Blood Volume Replaced (mls): 0 Fluid Volume Replaced (mls): 1,000 Operative Report Dictated: Yes
[2020-05-23] MEDS ORDERED: oxyCODONE HCL 5 MG TABLET ONE (12:18)
--- NOTE | 2020-05-23 12:26 | OP ---
DATE OF OPERATION: 05/23/2020 PREOPERATIVE DIAGNOSIS: Right knee pain, medial meniscus tear and medial plica. POSTOPERATIVE DIAGNOSIS: Right knee pain, medial meniscus tear and medial plica. PROCEDURE: Right knee arthroscopy, partial medial meniscectomy and plica excision. SURGEON: Joshua Obregon MD ASSISTANTS: None. ANESTHESIOLOGIST: Levar Hernandez CRNA with Betty Samaniego MD ANESTHESIA: Spinal anesthesia with sedation. DRAINS: None. COMPLICATIONS: None. SPECIMEN: Arthroscopic shavings. BLOOD LOSS: None. BLOOD GIVEN: None. FLUID REPLACEMENT: Plasma-Lyte 1000 mL INDICATIONS: Patient is a 44-year-old female with preoperative diagnosis of right knee pain, medial meniscus tear and a retained plica. After understanding the potential risks, complications, alternatives and benefits of surgical versus nonsurgical treatment, the patient elected to undergo this procedure. DESCRIPTION OF PROCEDURE: The patient was brought to the operating room. Peripheral IV placed. IV sedation given. Two g of IV Ancef were given. Spinal anesthesia was induced. Mild MAC sedation was used. She was placed in the supine position and a tourniquet was applied to the right upper thigh. Patient's right lower extremity was placed into the C-clamp leg kwon with ample padding throughout. The right lower extremity was then prepped and draped in a sterile fashion, elevated, exsanguinated with an Esmarch bandage, the tourniquet inflated to 275 mmHg. A superomedial outflow portal was established and a lateral portal was established under direct visualization using a spinal needle. Medial portal was established. A probe was introduced into the joint and a diagnostic arthroscopy was performed. The patient was seen to have a complex tear of the posterior horn of the medial meniscus. This was debrided and removed with the curved shaver. Photographs were taken before and after. There was no medial compartment osteoarthritis. Next, the patient had a lot of synovitis and excessive Hoffa's fat pad in the anterior aspect of the intercondylar notch. This was removed and this revealed within the fat a large thick plica. The plica was coming from the supermedial aspect of the knee. It crossed the medial condyle, the medial joint line and inserting onto the anterior aspect of the lateral proximal tibia. The plica was cut with a straight basket forceps and then removed with the curved shaver. Photographs were taken before and after. Next, the lateral compartment was directly visualized. It looked. There was no arthritis and the lateral meniscus looked pristine. Photographs were taken. Next, the patellofemoral joint was directly visualized. The medial and lateral gutters were visualized. There were no abnormalities. The knee was put through a full range of motion. There was no patellofemoral maltracking or osteoarthritis or any pathology in the patellofemoral joint. The area was copiously irrigated and washed out. All instrumentation, excess saline and debris were removed. The arthroscopy portals were closed with 3-0 nylon sutures. The area was then washed and dried, covered with Xeroform gauze, 4 x 4 gauze, Webril and a 6-inch Meliton bandage after the tourniquet was taken down and after a total tourniquet time of 27 minutes. There were no complications during the case. The patient tolerated the procedure quite well and was brought to the ambulatory recovery room in stable condition. Antonio [id number]
[2020-05-23 14:11] VITALS: TEMP 98.4
[2020-05-23 15:46] VITALS: BP 125/79; PULSE 78
--- NOTE | 2020-05-27 16:39 | PATH ---
Surgical Pathology Report Patient Name: NORAH VANCE Med. Rec. #: [id number] /Age/Gender: 1975 (Age: 44) / F Account: [id number] Location: [facility] Taken: 05/23/2020 Received: 05/23/2020 Reported: 05/27/2020 Physicians: Joshua Obregon M.D. Specimen(s) Received RIGHT KNEE SHAVINGS Clinical History Tear right knee Final Diagnosis KNEE, RIGHT, ARTHROSCOPIC SHAVINGS: FIBROSYNOVIAL TISSUE AND CARTILAGE. Electronically Signed Linn Schneider M.D. Gross Description Received in formalin, labeled "right knee shavings" is a 3.5 x 2.6 x 0.8 cm aggregate of light and yellow-m[place], soft tissue. Feed Mill Operator tissue is submitted in one cassette. AE/05/23/2020 ebram/05/23/2020
== END 2020-05-23 15:00 | disposition home or self-care (01) ==
LOC: FASU 07:37
PROVIDERS: ATTEND Orthopaedic Surgery
PROC: 0SBC4ZZ Excision of Right Knee Joint, Percutaneous Endoscopic Approach (ICD-10-PCS; principal; 2020-05-23 11:01)
PROC: 0SBC4ZZ Excision of Right Knee Joint, Percutaneous Endoscopic Approach (ICD-10-PCS; 2020-05-23 11:01)
DX: S83.241A Other tear of medial meniscus, current injury, right knee, initial encounter (principal); M67.51 Plica syndrome, right knee; M65.861 Other synovitis and tenosynovitis, right lower leg; X58.XXXA Exposure to other specified factors, initial encounter; Y93.9 Activity, unspecified; Y92.9 Unspecified place or not applicable
CPT/HCPCS: 82962; 84703; 88304-TC; 94760

== ENCOUNTER 2020-06-26 11:47 | Emergency (ER) | payer OTHER ==
[2020-06-26 11:53] VITALS: BMI 35.9
[2020-06-26] MEDS ORDERED: predniSONE 20 MG TABLET (UD) PO ONE (12:32)
[2020-06-26] MEDS ORDERED: ALBUTEROL SO4 2.5/IPRATROPIUM 0.5 INH SOL 3 ML VIAL.NEB. NEB ONE (12:48)
[2020-06-26] MEDS ORDERED: predniSONE 20 MG TABLET (UD) ONE (12:48)
[2020-06-26] MEDS: ALBUTEROL SO4 2.5/IPRATROPIUM 0.5 INH SOL 3 ML VIAL.NEB. NEB SCH ×2 (12:52→14:14)
--- NOTE | 2020-06-26 13:22 | PDOC ---
History of Present Illness - General Chief Complaint: Shortness of Breath Stated Complaint: ASTHMA Time Seen by Provider: 06/26/20 12:08 History Source: Patient, Unavil. due to pt. cond. - History of Present Illness Initial Comments: 06/26/20 13:13 44F with PMH of asthma, HTN, DM presents to ED with continuous SOB x3 days that hasn't resolved with home inhaler. Also reports dry cough w/o hemoptysis. Denies chest pain, fevers/chills, syncope, nv, or LE edema. Recent right meniscus surgery on May 23 but denies calf/distal thigh tenderness, no hx/o DVT/PE. PMH: as in HPI SH: laproscopic right meniscus (May 23, 2020) Meds: In chart Allergies: NKDA Tob/Etoh/Rec drugs: neg x3 PCP: Dr. Oliveira Specialist: (Materials Buyer, Dr. Cross) ROS GENERAL/CONSTITUTIONAL: No fever or chills. No weakness. HEENT: No change in vision. No ear pain or discharge. No sore throat. CARDIOVASCULAR: No chest pain, +shortness of breath RESPIRATORY: +cough, wheezing; no hemoptysis. GASTROINTESTINAL: No nausea, vomiting, diarrhea or constipation. GENITOURINARY: No dysuria, frequency, or change in urination. MUSCULOSKELETAL: No joint or muscle swelling or pain. No neck or back pain. SKIN: No rash NEUROLOGIC: No headache, vertigo, loss of consciousness, or change in strength/sensation. ENDOCRINE: No increased thirst. No abnormal weight change HEMATOLOGIC/LYMPHATIC: No anemia, easy bleeding, or history of blood clots. ALLERGIC/IMMUNOLOGIC: No hives or skin allergy. PE VITALS: tachypnic, afebrile GENERAL: Awake, alert, and fully oriented; no acute distress HEAD: No signs of trauma, normocephalic, atraumatic EYES: PERRLA, EOMI, sclera anicteric, conjunctiva clear ENT: Auricles normal inspection, hearing grossly normal, nares patent, moist mucosa, oropharynx clear without exudates. NECK: Normal ROM, supple, no LAD, JVD, or masses HEART: Regular rate and rhythm, normal S1/S2, no murmurs, rubs or gallops, peripheral pulses normal and equal bilaterally. LUNGS: Speaks full sentences, diffuse inspiratory and expiratory wheezes bilaterally ABDOMEN: Soft, nontender. No guarding, no rebound. No masses EXTREMITIES: Normal inspection, Normal range of motion, no edema. No calf tenderness. NEUROLOGICAL: CNII-XII grossly intact. Normal speech, no focal sensorimotor deficits SKIN: Warm, Dry, normal turgor, no rashes or lesions noted Assessment and Plan 1. Asthma exacerbation -> duoneb, steroids David Pruitt, PGY1 Emergency Medicine Past History - Medical History Allergies/Adverse Reactions: Allergies Allergy/AdvReac Type Severity Reaction Status Date / Time No Known Allergies Allergy Verified 06/26/20 11:53 Home Medications: Ambulatory Orders Budesonide/Formeterol Fumarate [SYMBICORT 160/4.5mcg -] 1 inh PO BID 06/11/18 Albuterol 0.083% Nebulizer Lena [Ventolin 0.083% Nebulizer Soln -] 1 amp NEB BID 05/07/20 Albuterol Sulfate Inhaler - [Ventolin HFA Inhaler -] 2 puff IH PRN PRN 05/07/20 Cetirizine HCl [Zyrtec] 10 mg PO DAILY 05/07/20 Metformin HCl [Glucophage] 500 mg PO DAILY 05/07/20 Montelukast Sodium [Singulair] 10 mg PO DAILY 05/07/20 Rosuvastatin Calcium [Crestor] 10 mg PO HS 05/07/20 Pramipexole Di-HCl [Pramipexole Dihydrochloride] 0.25 mg PO HS PRN 05/16/20 Hydrocodone/Acetaminophen [Hydrocodone-Acetamin 5-325 mg] 1 each PO Q6H #20 tablet MDD 4 05/23/20 Olmesartan Medoxomil 20 mg PO DAILY 05/23/20 Prednisone 40 mg PO Q2D 05/23/20 Albuterol Sulfate [Proair Hfa] 8.5 gm IH PRN PRN #1 hfa.aer.ad 06/26/20 Albuterol Sulfate [Proair Hfa] 8.5 gm IH PRN PRN #1 hfa.aer.ad 06/26/20 Prednisone [Prednisone 50 MG TABLETS] 50 mg PO DAILY 4 Days #4 tablet 06/26/20 Anemia: No Asthma: Yes (Intubated 2009) Cancer: No Cardiac Disorders: No CVA: No COPD: No CHF: No Dementia: No Diabetes: Yes GI Disorders: No Disorders: No HTN: Yes (RECENTLY PLACED ON OLMESARTAN) Hypercholesterolemia: Yes Liver Disease: No Seizures: No Thyroid Disease: No - Surgical History Abdominal Surgery: No Appendectomy: No Cardiac Surgery: No Cholecystectomy: No Lung Surgery: No Neurologic Surgery: No Orthopedic Surgery: Yes (scope/torn meniscus) - Reproductive History Is Patient Now?: No - Immunization History Td Vaccination: No TDAP Vaccination: No Immunization Up to Date: Yes - Psycho-Social/Smoking History Smoking Status: No Smoking History: Never smoked Have you smoked in the past 12 months: No Number of Cigarettes Smoked Daily: 0 Cigars Per Day: 0 Information on smoking cessation initiated: No - Substance Abuse Hx (Audit-C & DAST Scrn) How often the patient has a drink containing alcohol: Never Score: In Men: 4 or > Positive; In Women: 3 or > Positive: 0 Screen Result (Pos requires Nsg. Audit-10AR): Negative In the last yr the pt used illegal drug/Rx for NonMed reason: No Score: Yes response is considered Positive: 0 Screen Result (Positive result requires Nsg. DAST-10): Negative *Physical Exam - Vital Signs Last Vital Signs Temp Pulse Resp BP Pulse Ox 98 F 85 24 H 172/78 H 97 06/26/20 11:51 06/26/20 12:05 06/26/20 11:51 06/26/20 11:51 06/26/20 12:05 ED Treatment Course - Medications Given in the ED: ED Medications Discontinued Medications Generic Name Dose Route Start Last Admin Trade Name Shay PRN Reason Stop Dose Admin Prednisone 60 mg 06/26/20 12:32 06/26/20 12:52 Deltasone - PO 06/26/20 12:33 60 mg ONCE ONE Administration Medical Decision Making - Medical Decision Making 06/26/20 13:33 44F with PMH of asthma p/w asthma exacerbation. She was mildly tachypnic but spoke in full sentences, with diffuse inspiratory<expiratory wheezes bilaterally. -> duoneb + prednisone -> some improvement of wheezes -> will give 2nd tx of albuterol 06/26/20 14:48 Pt reported clinical improvement of dyspnea after 2nd nebulized albuterol. A mbulatory pulse ox at 100% on room air. Pt stable for d/c, advised to follow up with PMD. Discharge - Discharge Information Problems reviewed: Yes Clinical Impression/Diagnosis: Asthma Qualifiers: Asthma severity: mild Asthma persistence: persistent Asthma complication type: uncomplicated Qualified Code(s): J45.30 - Mild persistent asthma, uncomplicated Condition: Stable Disposition: HOME - Admission No - Additional Discharge Information Prescriptions: Prednisone [Prednisone 50 MG TABLETS] 50 mg PO DAILY 4 Days #4 tablet Albuterol Sulfate [Proair Hfa] 8.5 gm IH PRN PRN #1 hfa.[email or web address] PRN Reason: Asthma Albuterol Sulfate [Proair Hfa] 8.5 gm IH PRN PRN #1 hfa.[email or web address] PRN Reason: Asthma - Follow up/Referral Referrals: Alise Oliveira MD [Primary Care Provider] - - Patient Discharge Instructions Patient Printed Discharge Instructions: DI for Asthma -- Adult Additional Instructions: You were seen in the emergency department for asthma exacerbation. You were given 2 nebulized albuterol treatments in the emergency department and sent home with a prescription for prednisone ([facility]) and ProAir ([employer]). Please follow up with your primary care physician and or automotive service assistant regarding your visit to the emergency department. If you experience profound shortness of breath, fevers, or chest pain please return to the emergency department or call 911. - Post Discharge Activity Vital Signs - Vital Signs Vital signs refused: No Pulse Rate: 71 Blood Pressure: 141/83 BP Location: Right Arm Blood Pressure position: Sitting
[2020-06-26] MEDS ORDERED: ALBUTEROL SO4 0.083% IH SOL 2.5 MG/3 ML VIAL.NEB. NEB ONE ×2 (13:35→14:11)
--- NOTE | 2020-06-26 13:37 | PDOC ---
Documentation entered by Nahun Edwards SCRIBE, acting as scribe for Lis Borjas MD. Lis Borjas MD: This documentation has been prepared by the Grace blancas Xhesika, SCRIBE, under my direction and personally reviewed by me in its entirety. I confirm that the documentation accurately reflects all work, treatment, procedures, and medical decision making performed by me. Attending Attestation - Resident Resident Name: David Pruitt - ED Attending Attestation I have performed the following: I have examined & evaluated the patient, The case was reviewed & discussed with the resident, I agree w/resident's findings & plan, Exceptions are as noted - HPI HPI: 06/26/20 13:00 The patient is a 44-year-old female past medical history of asthma (intubated in the past 2009),DM, HTN, recent R knee surgery who presents to the emergency department today for shortness of breath x3 days. Patient also endorsing cough but states she has a chronic cough and it is largely unchanged. Pt states she used her home inhaler with no improvement of symptoms. Pt states her symptoms are similar to her prior asthma exacerbation. Allergies:NKDA PCP: Dr. Oliveira - Physicial Exam PE: 06/26/20 13:35 General: NAD HEENT: NCAT Chest: diffuse wheezing, speaking in full sentences, no accessory muscle use CVS: + s1 s2, RRR - Medical Decision Making 06/26/20 13:36 44 yo F here with asthma exacerbation, found to have wheezing on exam but no infectious complaints (reports cough is not new) to suggest superimposed PNA. Plan: -nebs -steroids -reassess, if patient reports improvement in symptoms and is ambulatory in ED without any complaints will d/c with return precautions and rx prednisone 4 more days, recommend PMD f/u This clinical encounter is taking place during a federal and state health care emergency attributable to the novel [place] Virus pandemic. The Sterilization Specialist of the Department of Health and Human Services has declared, pursuant to the Public Health Service Act 319F-3 (42 U.S.C. 247d-6d), that a covered persons activities related to medical countermeasures against COVID-19 will be immune from liability under Federal and State law. Discharge - Discharge Information Problems reviewed: Yes Clinical Impression/Diagnosis: Asthma Qualifiers: Asthma severity: mild Asthma persistence: persistent Asthma complication type: uncomplicated Qualified Code(s): J45.30 - Mild persistent asthma, uncomplicated Condition: Stable Disposition: HOME - Additional Discharge Information Prescriptions: Prednisone [Prednisone 50 MG TABLETS] 50 mg PO DAILY 4 Days #4 tablet Albuterol Sulfate [Proair Hfa] 8.5 gm IH PRN PRN #1 [email or web address] PRN Reason: Asthma Albuterol Sulfate [Proair Hfa] 8.5 gm IH PRN PRN #1 [email or web address] PRN Reason: Asthma - Follow up/Referral Referrals: Alise Oliveira MD [Primary Care Provider] - - Patient Discharge Instructions Patient Printed Discharge Instructions: DI for Asthma -- Adult Additional Instructions: You were seen in the emergency department for asthma exacerbation. You were given 2 nebulized albuterol treatments in the emergency department and sent home with a prescription for prednisone ([facility]) and ProAir ([employer]). Please follow up with your primary care physician and or lot technician regarding your visit to the emergency department. If you experience profound shortness of breath, fevers, or chest pain please return to the emergency department or call 911. - Post Discharge Activity
[2020-06-26 14:34] VITALS: BP 141/83
[2020-06-26 15:05] VITALS: PULSE 79; TEMP 98.5
== END 2020-06-26 15:04 | disposition home or self-care (01) ==
LOC: JER 11:47
PROC: 3E0F7GC Introduction of Other Therapeutic Substance into Respiratory Tract, Via Natural or Artificial Opening (ICD-10-PCS; principal; 2020-06-26)
DX: J45.30 Mild persistent asthma, uncomplicated (principal)
CPT/HCPCS: 99283-25

== ENCOUNTER 2021-12-24 15:05 | Emergency (ER) | payer OTHER ==
[2021-12-24 15:15] VITALS: BP 146/72; PULSE 71; TEMP 97.5; BMI 35.4
[2021-12-24] MEDS: ALBUTEROL SO4 2.5/IPRATROPIUM 0.5 INH SOL 3 ML VIAL.NEB. NEB SCH ×4 (17:40→18:32)
== END 2021-12-24 19:55 | disposition home or self-care (01) ==
LOC: JER 15:05
PROC: 3E0F7GC Introduction of Other Therapeutic Substance into Respiratory Tract, Via Natural or Artificial Opening (ICD-10-PCS; principal; 2021-12-24)
DX: J45.901 Unspecified asthma with (acute) exacerbation (principal)
CPT/HCPCS: 99283-25

== ENCOUNTER 2022-04-07 16:07 | Emergency (ER) | payer OTHER ==
[2022-04-07 16:45] VITALS: BP 153/72; PULSE 99; TEMP 99.1; BMI 35.0
[2022-04-07] MEDS ORDERED: BEBTELOVIMAB (EUA) 175 MG/2 ML VIAL IVPUSH ONE (16:48)
[2022-04-07] MEDS ORDERED: SODIUM CHLORIDE 0.9% 500 ML INFUS.BAG IV ONE (16:57)
[2022-04-07] MEDS ORDERED: ALBUTEROL SO4 2.5/IPRATROPIUM 0.5 INH SOL 3 ML VIAL.NEB. NEB ONE ×2 (16:57→17:14)
== END 2022-04-07 19:35 | disposition home or self-care (01) ==
LOC: JER 16:07
PROC: 3E033GC Introduction of Other Therapeutic Substance into Peripheral Vein, Percutaneous Approach (ICD-10-PCS; principal; 2022-04-07)
PROC: 3E0F7GC Introduction of Other Therapeutic Substance into Respiratory Tract, Via Natural or Artificial Opening (ICD-10-PCS; 2022-04-07)
DX: U07.1 COVID-19 (principal)
CPT/HCPCS: 71046-TC-FY; 94640; 96374; 99284-25; M0222; Q0222

== ENCOUNTER 2022-07-02 09:48 | Emergency (ER) | payer OTHER ==
[2022-07-02 09:54] VITALS: BMI 34.5
[2022-07-02] MEDS ORDERED: methylPREDNISolone NA SUCC 125 MG/2 ML VIAL ONE (09:58)
[2022-07-02] MEDS ORDERED: FAMOTIDINE 20 MG/50 ML IVPB 20 MG/50 ML MG IVPB ONE ×2 (09:58→10:01)
[2022-07-02] MEDS ORDERED: EPINEPHrine/PF 1 MG/1 ML (1:1,000) AMPULE ONE (09:58)
[2022-07-02] MEDS ORDERED: ALBUTEROL SO4 2.5/IPRATROPIUM 0.5 INH SOL 3 ML VIAL.NEB. NEB ONE (09:59)
[2022-07-02] MEDS ORDERED: EPINEPHrine 1:1,000 0.3 MG/0.3 ML SYR IM ONE (10:01)
[2022-07-02] MEDS ORDERED: MAGNESIUM SULF 50% (8.12 MEQ/2 ML-1 GM VIAL) IVPB ONE (10:12)
[2022-07-02] MEDS ORDERED: ALBUTEROL SO4 2.5/IPRATROPIUM 0.5 INH SOL 3 ML VIAL.NEB. NEB SCH (10:15)
[2022-07-02 11:43] VITALS: BP 118/62; PULSE 72; RESP 18; TEMP 98.3
== END 2022-07-02 12:07 | disposition home or self-care (01) ==
LOC: JER 09:48
PROC: 3E033NZ Introduction of Analgesics, Hypnotics, Sedatives into Peripheral Vein, Percutaneous Approach (ICD-10-PCS; principal; 2022-07-02)
PROC: 3E033GC Introduction of Other Therapeutic Substance into Peripheral Vein, Percutaneous Approach (ICD-10-PCS; 2022-07-02)
PROC: 3E033GC Introduction of Other Therapeutic Substance into Peripheral Vein, Percutaneous Approach (ICD-10-PCS; 2022-07-02)
DX: T78.40XA Allergy, unspecified, initial encounter (principal)
CPT/HCPCS: 99284-25

== ENCOUNTER 2023-01-29 07:28 | Emergency (ER) | payer OTHER ==
[2023-01-29 07:56] VITALS: BP 168/81; PULSE 83; RESP 18; TEMP 98.4; BMI 34.3
[2023-01-29] MEDS ORDERED: ALBUTEROL SO4 2.5/IPRATROPIUM 0.5 INH SOL 3 ML VIAL.NEB. NEB ONE ×2 (08:19)
[2023-01-29] MEDS ORDERED: FLUCONAZOLE 150 MG TABLET PO ONE ×2 (08:19→08:21)
[2023-01-29] MEDS ORDERED: FLUCONAZOLE 100 MG TABLET (UD) ONE (08:23)
[2023-01-29] MEDS ORDERED: FLUCONAZOLE 100 MG TABLET (UD) PO ONE (08:25)
== END 2023-01-29 09:57 | disposition home or self-care (01) ==
LOC: JERFT 07:28
PROC: 3E0F7GC Introduction of Other Therapeutic Substance into Respiratory Tract, Via Natural or Artificial Opening (ICD-10-PCS; principal; 2023-01-29)
DX: N76.89 Other specified inflammation of vagina and vulva (principal); R06.02 Shortness of breath; R06.2 Wheezing; B37.31 Acute candidiasis of vulva and vagina
CPT/HCPCS: 99283-25

== ENCOUNTER 2023-09-28 22:53 | Inpatient (IN) | payer OTHER ==
[2023-09-28 23:02] VITALS: BMI 34.2
[2023-09-28] MEDS ORDERED: ALBUTEROL SO4 2.5/IPRATROPIUM 0.5 INH SOL 3 ML VIAL.NEB. NEB ONE (23:30)
[2023-09-29] MEDS ORDERED: MAGNESIUM SULF 50% (8.12 MEQ/2 ML-1 GM VIAL) IVPB ONE (00:10)
[2023-09-29] MEDS ORDERED: ONDANSETRON 4 MG/2 ML VIAL IVPUSH ONE (00:10)
[2023-09-29] MEDS ORDERED: methylPREDNISolone NA SUCC 125 MG/2 ML VIAL IVPB ONE (00:10)
[2023-09-29] MEDS: ALBUTEROL SO4 2.5/IPRATROPIUM 0.5 INH SOL 3 ML VIAL.NEB. NEB SCH ×3 (00:15→00:57)
[2023-09-29] MEDS ORDERED: ONDANSETRON 4 MG/2 ML VIAL ONE (00:40)
[2023-09-29] MEDS ORDERED: MAGNESIUM SULFATE IN WATER 2 GM/50 ML IVPB IVPB ONE (00:41)
[2023-09-29] MEDS ORDERED: methylPREDNISolone NA SUCC 125 MG/2 ML VIAL ONE (00:41)
[2023-09-29 01:07] LABS: HEMATOCRIT 39.7 % (32.4-45.2); HEMOGLOBIN 12.7 GM/dL (10.7-15.3); MCH 27.1 pg (25.7-33.7); MCHC 32.1 g/dl (32.0-36.0); MEAN CELL VOLUME 84.5 fl (80-96); PLATELET COUNT 329 10^3/uL (134-434); RDW 15.1 % (11.6-15.6); WHITE BLOOD COUNT 23.8 K/mm3 (4.0-10.0)
[2023-09-29 01:09] LABS: VENOUS O2 SATURATION 72.4 % (70-80); VENOUS PCO2 42.7 mmHg (38-52); VENOUS PH 7.416 (7.310-7.410)
[2023-09-29] MEDS ORDERED: ACETAMINOPHEN 1000 MG/100 ML BAG IVPB ONE (01:23)
[2023-09-29] MEDS ORDERED: SODIUM CHLORIDE 0.9% 500 ML INFUS.BAG IV ONE (01:23)
[2023-09-29] MEDS ORDERED: ACETAMINOPHEN INJECTION 100 ML IVPB ONE (01:24)
[2023-09-29 01:47] LABS: POTASSIUM 3.1 mmol/L (3.5-5.1)
[2023-09-29 01:49] LABS: CALCIUM 8.9 mg/dL (8.5-10.1)
[2023-09-29 01:50] LABS: ALBUMIN 3.6 g/dl (3.4-5.0); BLOOD UREA NITROGEN 13.4 mg/dL (7-18); MAGNESIUM 1.7 mg/dL (1.8-2.4)
[2023-09-29 01:53] LABS: CREATININE 0.9 mg/dL (0.55-1.3)
[2023-09-29 01:54] LABS: BILIRUBIN,TOTAL 0.5 mg/dL (0.2-1); TOT PROT 7.2 g/dl (6.4-8.2)
[2023-09-29] MEDS ORDERED: POTASSIUM CHLORIDE TABS 20 MEQ TABLET.ER (FP) PO ONE (01:54)
[2023-09-29 02:45] LABS: ANISOCYTOSIS 3+; MACROCYTOSIS 0
[2023-09-29] MEDS: ALBUTEROL SO4 0.083% IH SOL 2.5 MG/3 ML VIAL.NEB. NEB SCH ×3 (03:46→04:24)
[2023-09-29] MEDS: LOSARTAN POTASSIUM 50 MG TABLET PO SCH (09:00)
[2023-09-29] MEDS: BUDESONIDE/FORMETEROL FUMARATE 160/4.5 mcg INHALER IH SCH ×2 (09:00→22:39)
[2023-09-29] MEDS ORDERED: methylPREDNISolone NA SUCC 40 MG/1 ML VIAL IVPUSH SCH (09:00)
[2023-09-29] MEDS ORDERED: REMDESIVIR 200 MG in SODIUM CHLORIDE 250 ML IVPB ONE (10:00)
[2023-09-29] MEDS: ACETAMINOPHEN 325 MG TABLET (FP) PO PRN ×2 (16:26→22:40)
[2023-09-29] MEDS: methylPREDNISolone NA SUCC 40 MG/1 ML VIAL IVPUSH SCH (17:19)
[2023-09-29] MEDS: MONTELUKAST NA 10 MG TABLET PO SCH (21:36)
[2023-09-29] MEDS: ROSUVASTATIN CA 10 MG TABLET PO SCH (21:36)
[2023-09-29] MEDS: ALBUTEROL SO4 HFA INHALER IH PRN (21:54)
[2023-09-29] MEDS: PRAMIPEXOLE DIHYDROCHLORIDE 0.25 MG TABLET PO PRN (22:39)
[2023-09-30] MEDS: methylPREDNISolone NA SUCC 40 MG/1 ML VIAL IVPUSH SCH ×3 (01:47→17:28)
[2023-09-30] MEDS: ACETAMINOPHEN 325 MG TABLET (FP) PO PRN ×2 (06:41→21:39)
[2023-09-30] MEDS: LOSARTAN POTASSIUM 50 MG TABLET PO SCH (09:49)
[2023-09-30] MEDS: BUDESONIDE/FORMETEROL FUMARATE 160/4.5 mcg INHALER IH SCH ×2 (09:52→21:57)
[2023-09-30 10:09] LABS: HEMATOCRIT 38.7 % (32.4-45.2); HEMOGLOBIN 12.2 GM/dL (10.7-15.3); MCH 27.2 pg (25.7-33.7); MCHC 31.6 g/dl (32.0-36.0); MEAN CELL VOLUME 86.1 fl (80-96); MEAN PLT VOLUME 8.9 fl (7.5-11.1); PLATELET COUNT 319 10^3/uL (134-434); RBC 4.49 M/mm3 (3.60-5.2); RDW 14.7 % (11.6-15.6)
[2023-09-30 10:14] LABS: WHITE BLOOD COUNT 31.1 K/mm3 (4.0-10.0)
[2023-09-30 10:26] LABS: POTASSIUM 4.4 mmol/L (3.5-5.1)
[2023-09-30 10:44] LABS: BLOOD UREA NITROGEN 14.9 mg/dL (7-18); CALCIUM 9.5 mg/dL (8.5-10.1)
[2023-09-30 10:45] LABS: ANISOCYTOSIS 0; MACROCYTOSIS 0
[2023-09-30 10:47] LABS: CREATININE 0.8 mg/dL (0.55-1.3)
[2023-09-30 10:48] LABS: TOT PROT 6.6 g/dl (6.4-8.2)
[2023-09-30] MEDS: REMDESIVIR 100 MG in SODIUM CHLORIDE 250 ML IVPB SCH (11:00)
[2023-09-30] MEDS: INSULIN ASPART SLIDING SCALE (NOVOLOG) 1 VIAL SQ SCH ×3 (11:08→21:52)
[2023-09-30] MEDS: ENOXAPARIN NA (PORCINE) 40 MG/0.4 ML DISP.SYRIN SQ SCH (15:33)
[2023-09-30] MEDS: MONTELUKAST NA 10 MG TABLET PO SCH (21:37)
[2023-09-30] MEDS: ROSUVASTATIN CA 10 MG TABLET PO SCH (21:37)
[2023-09-30] MEDS: PRAMIPEXOLE DIHYDROCHLORIDE 0.25 MG TABLET PO PRN (21:55)
[2023-09-30] MEDS: ALBUTEROL SO4 HFA INHALER IH PRN (21:57)
[2023-09-30] MEDS ORDERED: INSULIN (LEVEMIR) 100 UNITS/ML UNITS SQ SCH (22:00)
[2023-10-01] MEDS: methylPREDNISolone NA SUCC 40 MG/1 ML VIAL IVPUSH SCH ×3 (01:35→17:08)
[2023-10-01] MEDS: INSULIN ASPART SLIDING SCALE (NOVOLOG) 1 VIAL SQ SCH ×4 (06:30→23:43)
[2023-10-01] MEDS: INSULIN (LEVEMIR) 100 UNITS/ML UNITS SQ SCH ×2 (09:32→23:42)
[2023-10-01] MEDS: ENOXAPARIN NA (PORCINE) 40 MG/0.4 ML DISP.SYRIN SQ SCH (09:33)
[2023-10-01] MEDS: LOSARTAN POTASSIUM 50 MG TABLET PO SCH (09:33)
[2023-10-01 09:41] LABS: HEMATOCRIT 35.6 % (32.4-45.2); HEMOGLOBIN 11.5 GM/dL (10.7-15.3); MCH 27.7 pg (25.7-33.7); MCHC 32.4 g/dl (32.0-36.0); MEAN CELL VOLUME 85.4 fl (80-96); MEAN PLT VOLUME 8.5 fl (7.5-11.1); PLATELET COUNT 322 10^3/uL (134-434); RBC 4.18 M/mm3 (3.60-5.2); RDW 15.1 % (11.6-15.6)
[2023-10-01] MEDS: BUDESONIDE/FORMETEROL FUMARATE 160/4.5 mcg INHALER IH SCH ×2 (09:50→23:44)
[2023-10-01 09:59] LABS: POTASSIUM 4.1 mmol/L (3.5-5.1)
[2023-10-01 10:01] LABS: CALCIUM 9.4 mg/dL (8.5-10.1)
[2023-10-01 10:02] LABS: ALBUMIN 2.6 g/dl (3.4-5.0); BLOOD UREA NITROGEN 22.1 mg/dL (7-18)
[2023-10-01 10:05] LABS: CREATININE 0.7 mg/dL (0.55-1.3)
[2023-10-01 10:07] LABS: BILIRUBIN,TOTAL 0.4 mg/dL (0.2-1); TOT PROT 6.2 g/dl (6.4-8.2)
[2023-10-01 10:37] LABS: ANISOCYTOSIS 0; MACROCYTOSIS 0
[2023-10-01] MEDS ORDERED: ALBUTEROL SO4 HFA INHALER IH PRN (10:47)
[2023-10-01] MEDS: REMDESIVIR 100 MG in SODIUM CHLORIDE 250 ML IVPB SCH (10:59)
[2023-10-01] MEDS ORDERED: ALBUTEROL SO4 0.083% IH SOL 2.5 MG/3 ML VIAL.NEB. NEB ONE (12:00)
[2023-10-01] MEDS: CEFTRIAXONE 1 GM in DEXTROSE 5%-WATER - 50 ML IVPB SCH (13:18)
[2023-10-01] MEDS: ALBUTEROL SO4 2.5/IPRATROPIUM 0.5 INH SOL 3 ML VIAL.NEB. NEB SCH ×2 (15:36→20:05)
[2023-10-01] MEDS: ACETAMINOPHEN 325 MG TABLET (FP) PO PRN (17:08)
[2023-10-01] MEDS: ROSUVASTATIN CA 10 MG TABLET PO SCH (23:42)
[2023-10-01] MEDS: MONTELUKAST NA 10 MG TABLET PO SCH (23:42)
[2023-10-01] MEDS: PRAMIPEXOLE DIHYDROCHLORIDE 0.25 MG TABLET PO PRN (23:45)
[2023-10-02] MEDS: methylPREDNISolone NA SUCC 40 MG/1 ML VIAL IVPUSH SCH ×3 (02:14→17:26)
[2023-10-02] MEDS: INSULIN ASPART SLIDING SCALE (NOVOLOG) 1 VIAL SQ SCH ×4 (06:41→23:22)
[2023-10-02] MEDS: INSULIN (LEVEMIR) 100 UNITS/ML UNITS SQ SCH ×2 (06:43→22:44)
[2023-10-02] MEDS: ALBUTEROL SO4 2.5/IPRATROPIUM 0.5 INH SOL 3 ML VIAL.NEB. NEB SCH ×4 (08:08→20:30)
[2023-10-02] MEDS: CEFTRIAXONE 1 GM in DEXTROSE 5%-WATER - 50 ML IVPB SCH (10:04)
[2023-10-02] MEDS: ENOXAPARIN NA (PORCINE) 40 MG/0.4 ML DISP.SYRIN SQ SCH (10:05)
[2023-10-02] MEDS: REMDESIVIR 100 MG in SODIUM CHLORIDE 250 ML IVPB SCH (10:05)
[2023-10-02] MEDS: LOSARTAN POTASSIUM 50 MG TABLET PO SCH (10:09)
[2023-10-02] MEDS: BUDESONIDE/FORMETEROL FUMARATE 160/4.5 mcg INHALER IH SCH ×2 (10:47→23:25)
[2023-10-02] MEDS: MONTELUKAST NA 10 MG TABLET PO SCH (22:43)
[2023-10-02] MEDS: ROSUVASTATIN CA 10 MG TABLET PO SCH (22:43)
[2023-10-03] MEDS: methylPREDNISolone NA SUCC 40 MG/1 ML VIAL IVPUSH SCH ×3 (01:09→17:11)
[2023-10-03] MEDS: PRAMIPEXOLE DIHYDROCHLORIDE 0.25 MG TABLET PO PRN ×2 (02:20→23:08)
[2023-10-03] MEDS: INSULIN (LEVEMIR) 100 UNITS/ML UNITS SQ SCH ×2 (06:40→23:09)
[2023-10-03] MEDS: INSULIN ASPART SLIDING SCALE (NOVOLOG) 1 VIAL SQ SCH ×4 (06:41→23:19)
[2023-10-03] MEDS: ALBUTEROL SO4 2.5/IPRATROPIUM 0.5 INH SOL 3 ML VIAL.NEB. NEB SCH ×4 (08:17→20:31)
[2023-10-03] MEDS: REMDESIVIR 100 MG in SODIUM CHLORIDE 250 ML IVPB SCH (10:05)
[2023-10-03] MEDS: ENOXAPARIN NA (PORCINE) 40 MG/0.4 ML DISP.SYRIN SQ SCH (10:06)
[2023-10-03] MEDS: LOSARTAN POTASSIUM 50 MG TABLET PO SCH (10:06)
[2023-10-03] MEDS: CEFTRIAXONE 1 GM in DEXTROSE 5%-WATER - 50 ML IVPB SCH (10:06)
[2023-10-03] MEDS: BUDESONIDE/FORMETEROL FUMARATE 160/4.5 mcg INHALER IH SCH ×2 (10:58→23:08)
[2023-10-03] MEDS: FLUTICASONE PROP 0.05% 16 GM NASAL SPRAY NS SCH ×2 (14:12→23:09)
[2023-10-03 16:22] LABS: BASO % 0.2 % (0-2.0); EOS % 0.7 % (0-4.5); HEMATOCRIT 36.6 % (32.4-45.2); HEMOGLOBIN 11.8 GM/dL (10.7-15.3); LYMPH % 3.2 % (8-40); MCH 27.4 pg (25.7-33.7); MCHC 32.2 g/dl (32.0-36.0); MONO % 4.2 % (3.8-10.2); NEUT % 91.7 % (42.8-82.8); RDW 15.7 % (11.6-15.6); WHITE BLOOD COUNT 19.8 K/mm3 (4.0-10.0)
[2023-10-03 16:39] LABS: CHLORIDE 99 mmol/L (98-107); POTASSIUM 5.1 mmol/L (3.5-5.1); SODIUM 134 mmol/L (136-145)
[2023-10-03 16:44] LABS: ALBUMIN 2.5 g/dl (3.4-5.0); ANION GAP 10 mmol/L (4-13); BLOOD UREA NITROGEN 26.2 mg/dL (7-18); CALCIUM 9.4 mg/dL (8.5-10.1); CO2 25 mmol/L (21-32)
[2023-10-03 16:47] LABS: CREATININE 0.9 mg/dL (0.55-1.3); SGPT/ALT 85 U/L (13-61)
[2023-10-03 16:48] LABS: SGOT/AST 69 U/L (15-37)
[2023-10-03 16:49] LABS: BILIRUBIN,TOTAL 0.4 mg/dL (0.2-1); TOT PROT 6.4 g/dl (6.4-8.2)
[2023-10-03 16:52] LABS: ALK PHOS 134 U/L (45-117); GLUCOSE,RANDOM 455 mg/dL (74-106)
[2023-10-03 16:55] LABS: MEAN PLT VOLUME 9.7 fl (7.5-11.1); PLATELET COUNT 369 10^3/uL (134-434)
[2023-10-03 16:58] LABS: ANISOCYTOSIS 2+; MACROCYTOSIS 0; OVALOCYTE 1+
[2023-10-03] MEDS: ROSUVASTATIN CA 10 MG TABLET PO SCH (23:09)
[2023-10-03] MEDS: MONTELUKAST NA 10 MG TABLET PO SCH (23:09)
[2023-10-04] MEDS: methylPREDNISolone NA SUCC 40 MG/1 ML VIAL IVPUSH SCH ×3 (01:41→21:24)
[2023-10-04] MEDS: INSULIN (LEVEMIR) 100 UNITS/ML UNITS SQ SCH ×3 (06:02→21:43)
[2023-10-04] MEDS: INSULIN ASPART SLIDING SCALE (NOVOLOG) 1 VIAL SQ SCH ×4 (06:02→21:41)
[2023-10-04] MEDS: ALBUTEROL SO4 2.5/IPRATROPIUM 0.5 INH SOL 3 ML VIAL.NEB. NEB SCH ×4 (07:52→20:05)
[2023-10-04] MEDS: ENOXAPARIN NA (PORCINE) 40 MG/0.4 ML DISP.SYRIN SQ SCH (09:54)
[2023-10-04] MEDS: CEFTRIAXONE 1 GM in DEXTROSE 5%-WATER - 50 ML IVPB SCH (09:54)
[2023-10-04] MEDS: amLODIPine BESYLATE 5 MG TABLET (FP) PO SCH (09:54)
[2023-10-04] MEDS: LOSARTAN POTASSIUM 50 MG TABLET PO SCH (09:54)
[2023-10-04] MEDS: BUDESONIDE/FORMETEROL FUMARATE 160/4.5 mcg INHALER IH SCH ×2 (09:55→21:57)
[2023-10-04] MEDS: FLUTICASONE PROP 0.05% 16 GM NASAL SPRAY NS SCH ×2 (09:55→21:28)
[2023-10-04 09:58] LABS: HEMOGLOBIN 11.5 GM/dL (10.7-15.3); MCH 27.4 pg (25.7-33.7); MCHC 31.9 g/dl (32.0-36.0); MEAN CELL VOLUME 85.8 fl (80-96); MEAN PLT VOLUME 8.5 fl (7.5-11.1); PLATELET COUNT 377 10^3/uL (134-434); RDW 15.3 % (11.6-15.6)
[2023-10-04 10:16] LABS: POTASSIUM 3.9 mmol/L (3.5-5.1)
[2023-10-04 10:18] LABS: CALCIUM 8.9 mg/dL (8.5-10.1)
[2023-10-04 10:19] LABS: ALBUMIN 2.5 g/dl (3.4-5.0); BLOOD UREA NITROGEN 17.4 mg/dL (7-18)
[2023-10-04 10:22] LABS: CREATININE 0.7 mg/dL (0.55-1.3)
[2023-10-04 10:23] LABS: BILIRUBIN,TOTAL 0.4 mg/dL (0.2-1); TOT PROT 6.2 g/dl (6.4-8.2)
[2023-10-04 10:28] LABS: ANISOCYTOSIS 0; MACROCYTOSIS 0
[2023-10-04] MEDS: MONTELUKAST NA 10 MG TABLET PO SCH (21:23)
[2023-10-04] MEDS: ROSUVASTATIN CA 10 MG TABLET PO SCH (21:24)
[2023-10-05] MEDS: INSULIN (LEVEMIR) 100 UNITS/ML UNITS SQ SCH ×2 (06:44→23:00)
[2023-10-05] MEDS: INSULIN ASPART SLIDING SCALE (NOVOLOG) 1 VIAL SQ SCH ×4 (06:45→23:01)
[2023-10-05] MEDS: ALBUTEROL SO4 2.5/IPRATROPIUM 0.5 INH SOL 3 ML VIAL.NEB. NEB SCH ×4 (08:15→19:32)
[2023-10-05] MEDS: methylPREDNISolone NA SUCC 40 MG/1 ML VIAL IVPUSH SCH ×2 (10:19→22:57)
[2023-10-05] MEDS: CEFTRIAXONE 1 GM in DEXTROSE 5%-WATER - 50 ML IVPB SCH (10:19)
[2023-10-05] MEDS: ENOXAPARIN NA (PORCINE) 40 MG/0.4 ML DISP.SYRIN SQ SCH (10:19)
[2023-10-05] MEDS: LOSARTAN POTASSIUM 50 MG TABLET PO SCH (10:19)
[2023-10-05] MEDS: amLODIPine BESYLATE 5 MG TABLET (FP) PO SCH (10:19)
[2023-10-05] MEDS: FLUTICASONE PROP 0.05% 16 GM NASAL SPRAY NS SCH ×2 (10:20→23:07)
[2023-10-05] MEDS: BUDESONIDE/FORMETEROL FUMARATE 160/4.5 mcg INHALER IH SCH ×2 (10:20→23:12)
[2023-10-05] MEDS ORDERED: SODIUM CHLORIDE NASAL SPRAY 44 ML BOTTLE NS PRN (16:26)
[2023-10-05] MEDS: MONTELUKAST NA 10 MG TABLET PO SCH (22:56)
[2023-10-05] MEDS: ROSUVASTATIN CA 10 MG TABLET PO SCH (22:56)
[2023-10-06] MEDS: PRAMIPEXOLE DIHYDROCHLORIDE 0.25 MG TABLET PO PRN ×2 (00:10→23:53)
[2023-10-06] MEDS: INSULIN ASPART SLIDING SCALE (NOVOLOG) 1 VIAL SQ SCH ×4 (06:28→23:44)
[2023-10-06] MEDS: INSULIN (LEVEMIR) 100 UNITS/ML UNITS SQ SCH ×2 (06:30→23:40)
[2023-10-06] MEDS: ALBUTEROL SO4 2.5/IPRATROPIUM 0.5 INH SOL 3 ML VIAL.NEB. NEB SCH ×4 (07:35→20:29)
[2023-10-06 10:08] LABS: HEMATOCRIT 40.8 % (32.4-45.2); MCH 26.9 pg (25.7-33.7); MCHC 31.9 g/dl (32.0-36.0); MEAN CELL VOLUME 84.5 fl (80-96); MEAN PLT VOLUME 8.7 fl (7.5-11.1); PLATELET COUNT 461 10^3/uL (134-434); RBC 4.83 M/mm3 (3.60-5.2); RDW 15.5 % (11.6-15.6); WHITE BLOOD COUNT 19.6 K/mm3 (4.0-10.0)
[2023-10-06] MEDS: amLODIPine BESYLATE 5 MG TABLET (FP) PO SCH (10:19)
[2023-10-06] MEDS: LOSARTAN POTASSIUM 50 MG TABLET PO SCH (10:20)
[2023-10-06] MEDS: CEFTRIAXONE 1 GM in DEXTROSE 5%-WATER - 50 ML IVPB SCH (10:20)
[2023-10-06] MEDS: ENOXAPARIN NA (PORCINE) 40 MG/0.4 ML DISP.SYRIN SQ SCH (10:20)
[2023-10-06] MEDS: methylPREDNISolone NA SUCC 40 MG/1 ML VIAL IVPUSH SCH (10:20)
[2023-10-06] MEDS: BUDESONIDE/FORMETEROL FUMARATE 160/4.5 mcg INHALER IH SCH ×2 (10:21→23:45)
[2023-10-06] MEDS: FLUTICASONE PROP 0.05% 16 GM NASAL SPRAY NS SCH ×2 (10:21→23:44)
[2023-10-06 10:46] LABS: ANISOCYTOSIS 0; MACROCYTOSIS 0
[2023-10-06 11:01] LABS: POTASSIUM 3.7 mmol/L (3.5-5.1)
[2023-10-06 11:08] LABS: CALCIUM 9.2 mg/dL (8.5-10.1)
[2023-10-06 11:09] LABS: ALBUMIN 2.9 g/dl (3.4-5.0); BLOOD UREA NITROGEN 17.5 mg/dL (7-18)
[2023-10-06 11:12] LABS: CREATININE 0.6 mg/dL (0.55-1.3)
[2023-10-06 11:14] LABS: TOT PROT 6.6 g/dl (6.4-8.2)
[2023-10-06 11:23] LABS: CHOLESTEROL 146 mg/dL (50-200)
[2023-10-06 11:24] LABS: LDL CHOLESTEROL (ONLY SJRH) 77 mg/dL (5-100)
[2023-10-06 11:26] LABS: HDL CHOLESTEROL 53 mg/dL (40-60)
[2023-10-06] MEDS: ACETAMINOPHEN 325 MG TABLET (FP) PO PRN (23:39)
[2023-10-06] MEDS: ROSUVASTATIN CA 10 MG TABLET PO SCH (23:39)
[2023-10-06] MEDS: MONTELUKAST NA 10 MG TABLET PO SCH (23:39)
[2023-10-07] MEDS ORDERED: PHENOL 177 ML SPRAY BOTTLE MM PRN (03:20)
[2023-10-07] MEDS: INSULIN (LEVEMIR) 100 UNITS/ML UNITS SQ SCH (06:53)
[2023-10-07] MEDS: INSULIN ASPART SLIDING SCALE (NOVOLOG) 1 VIAL SQ SCH ×2 (06:55→12:37)
[2023-10-07] MEDS: ACETAMINOPHEN 325 MG TABLET (FP) PO PRN (06:57)
[2023-10-07] MEDS: ALBUTEROL SO4 2.5/IPRATROPIUM 0.5 INH SOL 3 ML VIAL.NEB. NEB SCH ×3 (08:05→15:40)
[2023-10-07] MEDS ORDERED: methylPREDNISolone NA SUCC 40 MG/1 ML VIAL IVPUSH SCH (10:00)
[2023-10-07] MEDS: CEFTRIAXONE 1 GM in DEXTROSE 5%-WATER - 50 ML IVPB SCH (10:36)
[2023-10-07] MEDS: ENOXAPARIN NA (PORCINE) 40 MG/0.4 ML DISP.SYRIN SQ SCH (10:37)
[2023-10-07] MEDS: LOSARTAN POTASSIUM 50 MG TABLET PO SCH (10:37)
[2023-10-07] MEDS: amLODIPine BESYLATE 5 MG TABLET (FP) PO SCH (10:37)
[2023-10-07] MEDS: BUDESONIDE/FORMETEROL FUMARATE 160/4.5 mcg INHALER IH SCH (10:44)
[2023-10-07] MEDS: FLUTICASONE PROP 0.05% 16 GM NASAL SPRAY NS SCH (10:44)
[2023-10-07 11:25] LABS: HEMATOCRIT 39.4 % (32.4-45.2); HEMOGLOBIN 12.6 GM/dL (10.7-15.3); MCH 27.2 pg (25.7-33.7); MCHC 32.1 g/dl (32.0-36.0); MEAN PLT VOLUME 8.2 fl (7.5-11.1); PLATELET COUNT 387 10^3/uL (134-434); RBC 4.63 M/mm3 (3.60-5.2); RDW 15.5 % (11.6-15.6); WHITE BLOOD COUNT 18.1 K/mm3 (4.0-10.0)
[2023-10-07 11:32] LABS: POTASSIUM 3.5 mmol/L (3.5-5.1)
[2023-10-07 11:42] LABS: ALBUMIN 2.6 g/dl (3.4-5.0); BLOOD UREA NITROGEN 16.2 mg/dL (7-18); CALCIUM 8.2 mg/dL (8.5-10.1)
[2023-10-07 11:45] LABS: CREATININE 0.6 mg/dL (0.55-1.3)
[2023-10-07 11:47] LABS: BILIRUBIN,TOTAL 0.5 mg/dL (0.2-1); TOT PROT 6.2 g/dl (6.4-8.2)
[2023-10-07 12:21] LABS: ANISOCYTOSIS 0; MACROCYTOSIS 0
[2023-10-07 16:59] VITALS: BP 148/78; PULSE 91; RESP 18; TEMP 98
== END 2023-10-07 17:01 | disposition home or self-care (01) | DRG 177 ==
LOC: JER 22:53 → JERBED 09-29 03:37 → OBSVTOIN 09-29 10:12 → J5S 09-29 16:17
PROVIDERS: ADMIT Internal Medicine; ATTEND Family Medicine
PROC: XW033E5 Introduction of Remdesivir Anti-infective into Peripheral Vein, Percutaneous Approach, New Technology Group 5 (ICD-10-PCS; principal; 2023-09-29)
DX: U07.1 COVID-19 (principal); J18.9 Pneumonia, unspecified organism; J96.01 Acute respiratory failure with hypoxia; J45.21 Mild intermittent asthma with (acute) exacerbation; I10 Essential (primary) hypertension; E78.5 Hyperlipidemia, unspecified; E11.9 Type 2 diabetes mellitus without complications; E87.6 Hypokalemia; D72.829 Elevated white blood cell count, unspecified
CPT/HCPCS: 0241U-QW; 36415; 71045-TC-FY; 71046-TC-FY; 80053; 80061; 82803; 82962; 83036; 83735; 84484; 85025; 86140; 87040; 87070; 87205; 87899; 93005; 93010; 94640; 94761; 99285-25; G0378; J0248